=== PATIENT | male | born 1970 | race Caucasian/White ===

== ENCOUNTER 2021-03-05 22:51 | Inpatient (IN) ==
--- NOTE | 2021-03-05 22:57 | Emergency Department Note ---
HPI General Chief complaint: Shortness of Breath/Dyspnea Stated complaint: sob Time Seen by Provider: 03/05/21 22:57 Source: patient and family Mode of arrival: ambulatory Limitations: no limitations History of Present Illness HPI Narrative: Narrative: The patient is a 50-year-old male who has had Covid symptoms for about a week and he was diagnosed yesterday with Covid. He also states that he was treated with outpatient monoclonal antibodies. He presents to the emergency department with worsening shortness of breath and worsening cough. Related Data Home Medications Medication Instructions Recorded Confirmed thyroid (pork) 65 mg tablet PO 30 Days #30 10/10/16 03/05/21 metformin 500 mg tablet 1,000 mg PO BID 01/11/18 03/05/21 budesonide-formoterol HFA 160 2 puff INHALATION g 03/05/21 03/05/21 mcg-4.5 mcg/actuation aerosol inhaler lisinopril 03/06/21 Previous Rx's Medication Instructions Recorded albuterol sulfate 90 mcg/actuation 2 puff INHALATION .q4-6h PRN #8.5 g 10/30/18 aerosol inhaler benzonatate 100 mg capsule See Rx Instructions PO .q 8 hours 03/05/21 PRN #30 cap Allergies Allergy/AdvReac Type Severity Reaction Status Date / Time No Known Drug Allergies Allergy Verified 03/05/21 23:00 Review of Systems ROS ROS Narrative: Narrative: All systems ED: reviewed and negative except as stated. [facility] Narrative Patient History Narrative: Narrative: Medical/Surgical/Family History All Active Problems (Updated 03/06/21 @ 02:03 by Lawrence Dave DO) Pneumonia due to COVID-19 virus (Acute) ANYA (acute kidney injury) (Acute) COVID-19 (Acute) Sinusitis, acute (Acute) Cough (Acute) Chest pain (Acute) Dyspnea (Acute) Dysmetabolic syndrome (Chronic) Hypothyroid (Chronic) Dyslipidemia (Chronic) Medical History (Updated 03/06/21 @ 02:03 by Lawrence Dave DO) Clavicle fracture Dyslipidemia associated with weight gain Dysmetabolic syndrome Hypothyroid Influenza A Surgical History H/O knee surgery S/P surgical manipulation of ankle joint Status post wrist surgery Social History Smoking Status: Never smoker Alcohol Intake Frequency: holiday/special occasion only Substance Use: does not use Exam Narrative Narrative: Narrative: General Limitations: no limitations General appearance: Present alert Head Head: Present atraumatic and normocephalic Eye Eye: Present normal appearance, PERRL and EOMI ENT ENT: Present normal exam, normal oropharynx and mucous membranes moist Neck Neck: Present normal inspection, full ROM and trachea midline Chest Chest: Present normal inspection and symmetric chest wall rise Respiratory Respiratory: Present other (Diffuse adventitious lung sounds in bilateral lung scott. No use of accessory muscles. Mild tachypnea.); Absent respiratory distress and accessory muscle use Cardiovascular Cardiovascular: Present regular rate and normal rhythm Adbominal Abdominal: Present soft and normal bowel sounds; Absent tenderness, guarding, rebound and organomegaly Extremities Extremities: Present normal inspection and full ROM; Absent tenderness Back Back: Present normal inspection and full ROM; Absent tenderness Neurological Neurological: Present alert, oriented X3, CN II-XII intact, normal gait, motor sensory deficit and reflexes normal Psychiatric Psychiatric: Present normal affect Skin Skin: Present warm (WNL); Absent rash Course Course Course Narrative: Chest x-ray shows bilateral pulmonary patchy fluffy infiltrates consistent with Covid pneumonia. Patient was evaluated and admitted to the hospitalist Dr. Loving, who recommends to initiate treatment with remdesivir. Patient also provided a dose of Decadron and basic facilitated admission orders were placed. EKG shows a rate of 89, sinus rhythm, left axis deviation, no STEMI, nonspecific EKG. Vital Signs Vital signs: Vital Signs Temperature 101.2 F H 03/05/21 22:52 Pulse Rate 100 H 03/05/21 22:52 Respiratory Rate 24 H 03/05/21 22:52 Blood Pressure 129/79 03/05/21 22:52 Pulse Oximetry (%) 79 L 03/05/21 22:52 Temperature 101.2 F H 03/05/21 22:52 Pulse Rate 85 03/06/21 01:48 Respiratory Rate 20 03/06/21 01:46 Blood Pressure 129/80 03/06/21 01:47 Pulse Oximetry (%) 92 03/06/21 01:48 MDM MDM Narrative Medical decision making narrative: Narrative: Lab Data Result diagrams: 03/05/21 00:25 03/05/21 00:25 Labs: Lab Results 03/05/21 03/05/21 03/05/21 Range/Units 00:25 00:25 00:25 WBC 5.1 (4.5-11.0) K/mcL RBC 4.70 (4.63-6.08) M/mcL Hgb 13.9 (13.7-17.5) g/dL Hct 40.4 (40.1-51.0) % MCV 86.0 (80.0-100.0) fL MCH 29.6 (26.0-34.0) pg MCHC 34.4 (31.0-36.0) g/dL RDW 13.4 (11.5-14.5) % Plt Count 154 (140-440) K/mcL MPV 9.6 (7.4-10.4) fL Neut % (Auto) 81.4 H (38.0-78.0) % Lymph % (Auto) 16.2 (15.5-49.0) % [place] % (Auto) 2.2 (1.0-12.0) % Eos % (Auto) 0 (0.0-7.0) % Baso % (Auto) 0.2 (0.0-2.0) % Lymph # (Auto) 0.82 L (1.50-4.80) K/mcL [place] # (Auto) 0.11 (0.10-0.90) K/mcL Eos # (Auto) 0 (0.00-0.70) K/mcL Baso # (Auto) 0.01 (0.00-0.30) K/mcL Absolute Neutrophils 4.12 (1.80-8.00) K/mcL PT 13.1 (11.9-14.5) sec INR 0.9 (0.9-1.1) APTT 37.2 H (20.0-37.0) sec Sodium 134 (133-145) mmol/L Potassium 4.5 (3.3-5.1) mmol/L Chloride 100 (96-108) mmol/L Carbon Dioxide 19 L (22-30) mmol/L Anion Gap 15.0 (8.0-16.0) BUN 23 H (6-20) mg/dL Creatinine 1.4 H (0.7-1.2) mg/dL GFR Calculation 58 Glucose 152 H (70-105) mg/dL Calcium 8.2 L (8.6-10.4) mg/dL Magnesium 1.7 (1.6-2.5) mg/dL Total Bilirubin 0.3 (0.1-1.0) mg/dL AST 71 H (<40) U/L ALT 40 H (<40) U/L Alkaline Phosphatase 62 (39-117) U/L Troponin T (<0.03) ng/mL NT-Pro-B Natriuret Pep 65.6 (<125.0) pg/mL Total Protein 6.4 (5.9-8.4) gm/dL Albumin 3.4 (3.2-5.2) gm/dL Globulin 3.0 (2.2-3.7) gm/dL Albumin/Globulin Ratio 1.1 (1.0-2.3) Lipase 47 (7-60) U/L Procalcitonin (<0.10) ng/mL 03/05/21 03/05/21 Range/Units 00:25 00:25 WBC (4.5-11.0) K/mcL RBC (4.63-6.08) M/mcL Hgb (13.7-17.5) g/dL Hct (40.1-51.0) % MCV (80.0-100.0) fL MCH (26.0-34.0) pg MCHC (31.0-36.0) g/dL RDW (11.5-14.5) % Plt Count (140-440) K/mcL MPV (7.4-10.4) fL Neut % (Auto) (38.0-78.0) % Lymph % (Auto) (15.5-49.0) % [place] % (Auto) (1.0-12.0) % Eos % (Auto) (0.0-7.0) % Baso % (Auto) (0.0-2.0) % Lymph # (Auto) (1.50-4.80) K/mcL [place] # (Auto) (0.10-0.90) K/mcL Eos # (Auto) (0.00-0.70) K/mcL Baso # (Auto) (0.00-0.30) K/mcL Absolute Neutrophils (1.80-8.00) K/mcL PT (11.9-14.5) sec INR (0.9-1.1) APTT (20.0-37.0) sec Sodium (133-145) mmol/L Potassium (3.3-5.1) mmol/L Chloride (96-108) mmol/L Carbon Dioxide (22-30) mmol/L Anion Gap (8.0-16.0) BUN (6-20) mg/dL Creatinine (0.7-1.2) mg/dL GFR Calculation Glucose (70-105) mg/dL Calcium (8.6-10.4) mg/dL Magnesium (1.6-2.5) mg/dL Total Bilirubin (0.1-1.0) mg/dL AST (<40) U/L ALT (<40) U/L Alkaline Phosphatase (39-117) U/L Troponin T < 0.01 (<0.03) ng/mL NT-Pro-B Natriuret Pep (<125.0) pg/mL Total Protein (5.9-8.4) gm/dL Albumin (3.2-5.2) gm/dL Globulin (2.2-3.7) gm/dL Albumin/Globulin Ratio (1.0-2.3) Lipase (7-60) U/L Procalcitonin 2.86 H (<0.10) ng/mL Discharge Plan Patient/Caregiver Discharge Instructions 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: No Clinical Impression: COVID-19, Pneumonia due to COVID-19 virus, ANYA (acute kidney injury) Instructions: COVID-19 Patient Disposition: Xfer As Inpt ([facility]) Condition: Serious Follow up with: John Abernathy MD [Primary Care Provider] - Prescriptions: No Action thyroid (pork) 65 MG tablet 65 mg PO DAILY 30 Days Qty: 30 RF: 0 budesonide-formoterol 160-4.5 mcg/actuation HFA aerosol inhaler 2 puff inhalation PRN PRN (Reason: Shortness Of Breath Or Wheezing) RF: 0 benzonatate [Tessalon Perles] 100 mg capsule See Rx Instructions PO .q 8 hours PRN (Reason: cough) Qty: 30 RF: 0 metformin 500 mg tablet 1,000 mg PO BID RF: 0 albuterol sulfate [ProAir HFA] 90 mcg/actuation HFA aerosol inhaler 2 puff inhalation .q4-6h PRN (Reason: cough, shortness of breath, wheezing) Qty: 8.5 RF: 0 lisinopril RF: 0
[2021-03-05] MEDS ORDERED: DEXAMETHASONE 10 MG/ML VIAL IV ONE (22:59)
[2021-03-05] MEDS ORDERED: 0.9 % SODIUM CHLORIDE 1,000 ML IV ONE (23:56)
[2021-03-06 00:56] LABS: Basophils # (Auto) 0.01 K/mcL (0.00-0.30); Basophils % (Auto) 0.2 % (0.0-2.0); Eosinophils # (Auto) 0 K/mcL (0.00-0.70); Eosinophils % (Auto) 0 % (0.0-7.0); Hematocrit 40.4 % (40.1-51.0); Hemoglobin 13.9 g/dL (13.7-17.5); Lymphocytes # (Auto) 0.82 K/mcL (1.50-4.80); Lymphocytes % (Auto) 16.2 % (15.5-49.0); Mean Corpuscular HGB Conc 34.4 g/dL (31.0-36.0); Mean Platelet Volume 9.6 fL (7.4-10.4); Monocytes # (Auto) 0.11 K/mcL (0.10-0.90); Monocytes % (Auto) 2.2 % (1.0-12.0); Neutrophils % (Auto) 81.4 % (38.0-78.0); Platelet Count 154 K/mcL (140-440); Red Cell Distribution Width 13.4 % (11.5-14.5); WBC 5.1 K/mcL (4.5-11.0)
[2021-03-06 01:15] LABS: proBNP 65.6 pg/mL (<125.0)
[2021-03-06 01:19] LABS: ALT/SGPT 40 U/L (<40); AST/SGOT 71 U/L (<40); Albumin 3.4 gm/dL (3.2-5.2); Albumin/Globulin Ratio 1.1 (1.0-2.3); Alkaline Phosphatase 62 U/L (39-117); Bilirubin,Total 0.3 mg/dL (0.1-1.0); Blood Urea Nitrogen 23 mg/dL (6-20); Calcium 8.2 mg/dL (8.6-10.4); Carbon Dioxide 19 mmol/L (22-30); Chloride 100 mmol/L (96-108); Glomerular Filtration Rate 58; Glucose 152 mg/dL (70-105)
[2021-03-06 01:30] LABS: INR 0.9 (0.9-1.1); Partial Thromboplastin Time 37.2 sec (20.0-37.0); Prothrombin Time 13.1 sec (11.9-14.5)
[2021-03-06] MEDS ORDERED: IBUPROFEN 600 MG TABLET PO PRN ×2 (01:34→07:22)
[2021-03-06] MEDS ORDERED: ONDANSETRON 4 MG/2 ML VIAL IV PRN ×3 (01:34→07:22)
[2021-03-06] MEDS ORDERED: ACETAMINOPHEN 325 MG TABLET PO PRN ×2 (01:34→07:22)
[2021-03-06] MEDS ORDERED: REMDESIVIR 200 MG in 0.9 % SODIUM CHLORIDE 250 ML IV ONE (01:34)
[2021-03-06] MEDS ORDERED: 0.9 % SODIUM CHLORIDE 1,000 ML IV SCH ×2 (01:45→07:30)
[2021-03-06] MEDS ORDERED: 0.9 % SODIUM CHLORIDE 10 ML SYRINGE IV SCH ×2 (06:00→14:00)
--- NOTE | 2021-03-06 06:27 | XRay Report ---
INDICATION: SOB. Positive covid test TECHNIQUE: AP portable semiupright chest x-ray COMPARISON: Previous chest x-ray dated 05/25/2018 FINDINGS: Lungs:Bilateral diffuse pulmonary parenchymal infiltrates with peripheral predominance. Appearance is consistent with severe covid pneumonia. Heart, vascular:No significant cardiomegaly. Pulmonary vascularity is normal. No pulmonary edema or pulmonary congestion Mediastinum, rebeka:No mediastinal widening. No hilar mass Pleura:No pleural fluid. No pleural-based mass or calcification Skeletal:Negative. IMPRESSION: 1. Bilateral pulmonary parenchymal infiltrates 2. Appearance is consistent with severe covid pneumonia Interpreted and Authenticated by: Dereck Felipe 03/06/21
[2021-03-06] MEDS ORDERED: BENZONATATE 100 MG CAPSULE PO PRN (07:10)
[2021-03-06] MEDS ORDERED: MELATONIN 3 MG TABLET PO PRN ×2 (07:14→07:29)
--- NOTE | 2021-03-06 07:20 | Internal Med History&Physical ---
HPI History of Present Illness Patient information: Note initiated : 03/06/21 at 7:15 am Service Date, if different from initiated Date: [] Patient: Buck Zamora 50 y/o M admitted on 03/06/21 for sob. Chief Complaint: [CoVID pneumonia] History of present illness: Mr. Zamora is a 50 year old M history of type 2 diabetes mellitus, hypothyroidism, presenting with 6-day history of shortness of breath with nonproductive cough. There was no prior similar episode. Patient is not vaccinated against Covid pneumonia. Status post Tocilizumab on 03/05. Patient denies any sick contact. Patient was in his usual state of health until 6 days ago when he developed sudden onset shortness of breath with nonproductive cough. He is also complaining of chest pain whenever he coughs. He is also committing of respiratory wheezing. He denies any subjective fever or shaking chills or diaphoresis. He is complaining of general body weakness. He denies any muscle aches. Vital signs at ED presentation significant for tachypnea with rate of breathing in the mid 30s, and oxygen desaturation to the 70s on room air. Labs were significant for lack of leukocytosis with WBC 5.1. Serum creatinine elevated to 1.4 with baseline 1.0. Procalcitonin elevated at 2.86. Covid antigen test positive. Chest x-ray showing bilateral pulmonary infiltrates typical for Covid pneumonia. Constitutional Constitutional: Present weakness; Absent chills, excessive sweating, fatigue and fever(s) EENT Eyes: Absent blurry vision, change in vision, loss of vision and other visual disturbances Ears: Absent decreased hearing and tinnitus Nose, mouth and throat: Absent abnormal hearing, dry mouth, headache(s), nasal congestion and sore throat Cardiovascular Cardiovascular: Absent chest pain, chest pain at rest, edema, irregular heart rhythm and palpatations Respiratory Respiratory: Present cough, dyspnea and wheezing; Absent excessive phlegm production Gastrointestinal Gastrointestinal: Absent abdominal pain, constipation, diarrhea, nausea and vomiting Musculoskeletal Musculoskeletal: Absent back pain, deformity, limited range of motion, muscle cramps, muscle weakness and numbness Integumentary Integumentary: Absent lesions, rash and wounds Neurological Neurological: Absent focal weakness, headache(s) and numbness Psychiatric Psychiatric: Absent anxiety, depression and hallucinations PFSH PFSH All Active Problems (Updated 03/06/21 @ 07:19 by Inder Loving MD) T2DM (type 2 diabetes mellitus) (Acute) Stage 1 acute kidney injury (Acute) Pneumonia due to COVID-19 virus (Acute) ANYA (acute kidney injury) (Acute) COVID-19 (Acute) Sinusitis, acute (Acute) Cough (Acute) Chest pain (Acute) Dyspnea (Acute) Dysmetabolic syndrome (Chronic) Hypothyroid (Chronic) Dyslipidemia (Chronic) Medical History (Updated 03/06/21 @ 07:19 by Inder Loving MD) Clavicle fracture Dyslipidemia associated with weight gain Dysmetabolic syndrome Hypothyroid Influenza A Surgical History H/O knee surgery S/P surgical manipulation of ankle joint Status post wrist surgery Social History alcohol intake frequency: holiday/special occasion only substance use type: does not use MEDS/ALLERGIES Home Medications and Allergies Home Medications Medication Instructions Recorded Confirmed Type thyroid (pork) 65 mg tablet 65 mg PO DAILY 30 Days #30 10/10/16 03/06/21 History metformin 500 mg tablet 1,000 mg PO BID 01/11/18 03/06/21 History albuterol sulfate 90 mcg/actuation 2 puff INHALATION .q4-6h PRN #8.5 g 10/30/18 03/06/21 Rx aerosol inhaler benzonatate 100 mg capsule See Rx Instructions PO .q 8 hours 03/05/21 03/06/21 Rx PRN #30 cap budesonide-formoterol HFA 160 2 puff INHALATION PRN PRN g 03/05/21 03/06/21 History mcg-4.5 mcg/actuation aerosol inhaler lisinopril 10 mg PO DAILY 03/06/21 03/06/21 History melatonin 5 mg PO HS PRN 03/06/21 03/06/21 History Allergies Allergy/AdvReac Type Severity Reaction Status Date / Time No Known Drug Allergies Allergy Verified 03/06/21 06:30 EXAM Constitutional Vitals: Temp Pulse Resp BP Pulse Ox 36.0 C L 79 33 H 150/110 91 03/06/21 04:02 03/06/21 06:01 03/06/21 06:01 03/06/21 06:01 03/06/21 06:01 General appearance: cooperative, mild distress and morbidly obese Head Head exam: Present atraumatic and normocephalic Eye Eye exam: Present EOMI and PERRL ENT ENT exam: Present mucous membranes moist, normal exam and normal external ear exam Additional comments: high flow oxygen in place Neck Neck exam: Present normal inspection; Absent lymphadenopathy, tenderness and thyromegaly Respiratory Respiratory exam: Present decreased breath sounds and rhonchi; Absent accessory muscle use, CTAB and respiratory distress Cardiovascular Cardiovascular exam: Present normal rate and rhythm; Absent JVD GI/Abdominal GI/Abdominal exam: Present normal bowel sounds and soft; Absent organomegaly and tenderness Rectal Rectal exam: Present deferred Extremities Exam Extremities exam: Present full ROM, normal capillary refill and normal inspection; Absent tenderness Neurological Exam Neurological exam: Present alert, CN II-XII intact and oriented X3; Absent motor sensory deficit Psychiatric Psychiatric exam: Present normal affect and normal mood; Absent anxious and depressed Skin Skin exam: Present dry and intact DATA Data Completed and Pending Labs: Labs from last 24 hours 03/05/21 03/05/21 03/05/21 00:25 00:25 00:25 WBC RBC Hgb Hct MCV MCH MCHC RDW Plt Count MPV Neut % (Auto) Lymph % (Auto) [place] % (Auto) Eos % (Auto) Baso % (Auto) Lymph # (Auto) [place] # (Auto) Eos # (Auto) Baso # (Auto) Absolute Neutrophils PT INR APTT Sodium 134 Potassium 4.5 Chloride 100 Carbon Dioxide 19 L Anion Gap 15.0 BUN 23 H Creatinine 1.4 H GFR Calculation 58 Glucose 152 H Calcium 8.2 L Magnesium 1.7 Total Bilirubin 0.3 AST 71 H ALT 40 H Alkaline Phosphatase 62 Troponin T < 0.01 NT-Pro-B Natriuret Pep 65.6 Total Protein 6.4 Albumin 3.4 Globulin 3.0 Albumin/Globulin Ratio 1.1 Lipase 47 Procalcitonin 2.86 H 03/05/21 03/05/21 00:25 00:25 WBC 5.1 RBC 4.70 Hgb 13.9 Hct 40.4 MCV 86.0 MCH 29.6 MCHC 34.4 RDW 13.4 Plt Count 154 MPV 9.6 Neut % (Auto) 81.4 H Lymph % (Auto) 16.2 [place] % (Auto) 2.2 Eos % (Auto) 0 Baso % (Auto) 0.2 Lymph # (Auto) 0.82 L [place] # (Auto) 0.11 Eos # (Auto) 0 Baso # (Auto) 0.01 Absolute Neutrophils 4.12 PT 13.1 INR 0.9 APTT 37.2 H Sodium Potassium Chloride Carbon Dioxide Anion Gap BUN Creatinine GFR Calculation Glucose Calcium Magnesium Total Bilirubin AST ALT Alkaline Phosphatase Troponin T NT-Pro-B Natriuret Pep Total Protein Albumin Globulin Albumin/Globulin Ratio Lipase Procalcitonin Preliminary micro results at discharge 03/05/21 00:15 Blood Culture - Preliminary Blood 03/05/21 00:04 Blood Culture - Preliminary Blood A/P Assessment and plan (1) Pneumonia due to COVID-19 virus: Status: Acute (2) Stage 1 acute kidney injury: Status: Acute (3) Hypothyroid: Status: Chronic Qualifiers: Hypothyroidism type: acquired Qualified Code(s): E03.9 - Hypothyroidism, unspecified (4) T2DM (type 2 diabetes mellitus): Status: Acute Narrative A/P Narrative: Assessment and plan: 1. Covid pneumonia: Admit to inpatient PCU with cardiac monitoring Isolations: Airborne and contact Lactic acid Inflammatory markers Blood culture CBC with auto differential Supplemental oxygen therapy currently at high flow oxygen titrate to achieve SPO2 greater than or equal to 92% Status post Tocilizumab on 03/05. Remdesivir Dexamethasone Lovenox Tylenol as needed fever Tessalon Robitussin as needed cough DuoNeb nebulizer as needed wheezing 2. type 2 diabetes mellitus: Hemoglobin A1c Home Metformin Low-dose correctional scale insulin AC at bedtime Accu-Chek is suggested Hypoglycemia protocol Diabetic diet #3 stage I acute kidney injury: Avoid for toxic agents Normal saline at 125 cc/h BMP to trend kidney functions next 4. Hypothyroidism: Continue oral thyroid replacement therapy GI prophylaxis: Not currently indicated DVT prophylaxis: Lovenox CODE STATUS: Full code Prognosis: Guarded Disposition: Inpatient PCU Time Spent With Patient Time: Total time spent is greater than 50% in coordination of care (as documented) at patient's floor/unit and/or counseling patient: Total time spent with greater than 50% in coordination of care (as documented) at patient's floor/unit and/or counseling patient:: Greater than 35 minutes QUALITY VTE Deep Vein Thrombosis/Pulmonary Embolism Present on Admission: No
[2021-03-06] MEDS ORDERED: LACTULOSE 20 GM/30 ML ORAL.SOL PO PRN (07:22)
[2021-03-06] MEDS ORDERED: DEXTROSE 31 GM ORAL.SUSP PO PRN (07:22)
[2021-03-06] MEDS ORDERED: DEXTROSE 50% 50 ML VIAL IV PRN (07:22)
[2021-03-06] MEDS ORDERED: SENNOSIDES 1 TABLET PO PRN (07:22)
[2021-03-06] MEDS ORDERED: guaiFENesin/DEXTROMETHORPHAN ORAL SOL PO PRN (07:22)
[2021-03-06] MEDS: INSULIN LISPRO 1 UNIT/0.01 ML UNIT SQ SCH ×4 (07:56→20:40)
[2021-03-06] MEDS: ENOXAPARIN 40 MG/0.4 ML SYRINGE SQ SCH ×2 (07:56→20:32)
[2021-03-06] MEDS: DEXAMETHASONE 4 MG TABLET PO SCH (07:56)
[2021-03-06] MEDS: THYROID, PORK 60 MG TABLET PO SCH (08:02)
[2021-03-06 08:57] LABS: Basophils # (Auto) 0.01 K/mcL (0.00-0.30); Basophils % (Auto) 0.1 % (0.0-2.0); Eosinophils # (Auto) 0 K/mcL (0.00-0.70); Eosinophils % (Auto) 0 % (0.0-7.0); Hematocrit 40.3 % (40.1-51.0); Hemoglobin 13.5 g/dL (13.7-17.5); Lymphocytes # (Auto) 0.72 K/mcL (1.50-4.80); Lymphocytes % (Auto) 10.1 % (15.5-49.0); Mean Cell Volume 88.2 fL (80.0-100.0); Mean Corpuscular HGB Conc 33.5 g/dL (31.0-36.0); Mean Platelet Volume 9.6 fL (7.4-10.4); Monocytes # (Auto) 0.13 K/mcL (0.10-0.90); Monocytes % (Auto) 1.8 % (1.0-12.0); Platelet Count 169 K/mcL (140-440); RBC 4.57 M/mcL (4.63-6.08); Red Cell Distribution Width 13.7 % (11.5-14.5); WBC 7.1 K/mcL (4.5-11.0)
[2021-03-06] MEDS ORDERED: THYROID PO SCH (09:00)
[2021-03-06] MEDS ORDERED: [UNRECOGNIZED DRUG - OTHER] PO SCH (09:00)
[2021-03-06] MEDS ORDERED: DOCUSATE SODIUM 100 MG CAPSULE PO SCH ×2 (09:00)
[2021-03-06 09:08] LABS: ALT/SGPT 39 U/L (<40); AST/SGOT 69 U/L (<40); Albumin 3.4 gm/dL (3.2-5.2); Albumin/Globulin Ratio 1.2 (1.0-2.3); Alkaline Phosphatase 61 U/L (39-117); Bilirubin,Total 0.2 mg/dL (0.1-1.0); Blood Urea Nitrogen 25 mg/dL (6-20); Calcium 8.1 mg/dL (8.6-10.4); Carbon Dioxide 19 mmol/L (22-30); Chloride 103 mmol/L (96-108); Globulin 2.9 gm/dL (2.2-3.7); Glomerular Filtration Rate 70; Glucose 222 mg/dL (70-105)
[2021-03-06] MEDS: DOCUSATE SODIUM 100 MG CAPSULE PO SCH ×2 (09:21→20:32)
[2021-03-06 10:14] LABS: Hemoglobin A1C 6.6 % Hgb (4.0-6.0)
[2021-03-06] MEDS: 0.9 % SODIUM CHLORIDE 1,000 ML IV SCH ×2 (11:17→18:33)
[2021-03-06] MEDS: 0.9 % SODIUM CHLORIDE 10 ML SYRINGE IV SCH ×2 (12:19→20:32)
--- NOTE | 2021-03-06 12:46 | Internal Med Progress Note ---
SUBJECTIVE Subjective Patient information: Note initiated : 03/06/21 at 12:41 pm Service Date, if different from initiated Date: [] Patient: Buck Zamora 50 y/o M admitted on 03/06/21 for sob. Chief Complaint: [] Interval history: History of present illness: Mr. Zamora is a 50 year old M history of type 2 diabetes mellitus, hypothyroidism, presenting with 6-day history of shortness of breath with nonproductive cough. There was no prior similar episode. Patient is not vaccinated against Covid pneumonia. Status post Tocilizumab on 03/05. Patient denies any sick contact. Patient was in his usual state of health until 6 days ago when he developed sudden onset shortness of breath with nonproductive cough. He is also complaining of chest pain whenever he coughs. He is also committing of respiratory wheezing. He denies any subjective fever or shaking chills or diaphoresis. He is complaining of general body weakness. He denies any muscle aches. Vital signs at ED presentation significant for tachypnea with rate of breathing in the mid 30s, and oxygen desaturation to the 70s on room air. Labs were significant for lack of leukocytosis with WBC 5.1. Serum creatinine elevated to 1.4 with baseline 1.0. Procalcitonin elevated at 2.86. Covid antigen test positive. Chest x-ray showing bilateral pulmonary infiltrates typical for Covid pneumonia. 03/07 Constitutional Vitals: Vital Signs Temp Pulse Resp BP Pulse Ox 97.1 F 80 35 H 141/88 91 03/06/21 12:01 03/06/21 12:01 03/06/21 12:01 03/06/21 12:01 03/06/21 12:01 Period Temp Pulse Resp BP Sys/Joyner Pulse Ox Last 24 Hr 96.8 F-101.2 F 70-100 16-35 105-168/74-126 79-96 Intake and Output 03/05/21 03/06/21 03/06/21 21:59 05:59 13:59 Intake Total 1000 1610 Output Total 0 450 Balance 1000 1160 Weight 99.7 kg Intake & Output: Intake & Output 03/05/21 03/06/21 03/06/21 21:59 05:59 13:59 Intake Total 1000 1610 Output Total 0 450 Balance 1000 1160 Weight 99.7 kg Intake: IV 1000 1250 Sodium Chloride 0.9% 1,000 ml @ 1000 1000 125 mls/hr IV .Q8H [facility] Rx#: [id number] Veklury 200 mg In Sodium 250 Chloride 0.9% 250 ml @ 500 mls/ hr IV ONCE ONE Rx#:[id number] Oral 0 360 Output: Void Amount 0 450 Other: Meal Breakfast Percent of Meal Consumed 100% Exam: General: Alert, Awake, No acute Distress Eyes/N/T: EOMI, Head/Neck: neck supple, CV: RRR, No murmurs, Pulm: b/l, no wheezing/rhonchi/rales Abd: soft, nontender, +BS x4 Ext: no clubbing/cyanosis/edema Neuro: Alert, no focal deficits, moves all extremities, Skin: warm/dry OBJ DATA Labs CBC & Chem 7: 03/06/21 07:49 03/06/21 07:49 Labs: Abnormal Lab Results 03/06/21 03/06/21 03/06/21 07:49 07:49 07:49 RBC 4.57 L Hgb 13.5 L Neut % (Auto) 88.0 H Lymph % (Auto) 10.1 L Lymph # (Auto) 0.72 L APTT Carbon Dioxide 19 L BUN 25 H Creatinine Glucose 222 H Hemoglobin A1c 6.6 H Calcium 8.1 L AST 69 H ALT Procalcitonin 03/05/21 03/05/21 03/05/21 00:25 00:25 00:25 RBC Hgb Neut % (Auto) Lymph % (Auto) Lymph # (Auto) APTT 37.2 H Carbon Dioxide 19 L BUN 23 H Creatinine 1.4 H Glucose 152 H Hemoglobin A1c Calcium 8.2 L AST 71 H ALT 40 H Procalcitonin 2.86 H 03/05/21 00:25 RBC Hgb Neut % (Auto) 81.4 H Lymph % (Auto) Lymph # (Auto) 0.82 L APTT Carbon Dioxide BUN Creatinine Glucose Hemoglobin A1c Calcium AST ALT Procalcitonin Meds: Medications Acetaminophen (Acetaminophen 325 Mg Tablet) 650 mg PO Q6HP PRN; Protocol PRN Reason: Per Pain Protocol/Fever > 101 Acetaminophen (Acetaminophen 325 Mg Tablet) 650 mg PO Q6HP PRN; Protocol PRN Reason: Per Pain Protocol/Fever > 101 Albuterol/Ipratropium (Ipratropium/Albuterol 3 Ml Ampul.Neb) 3 ml NEB Q4HRT PRN PRN Reason: Wheezing Benzonatate (Benzonatate 100 Mg Capsule) 0 mg PO Q8HP PRN PRN Reason: cough Dexamethasone (Dexamethasone 4 Mg Tablet) 6 mg PO DAILY [facility] Last Admin: 03/06/21 07:56 Dose: 6 mg Documented by: Dextrose (Dextrose 50% 50 Ml Vial) 0 ml IV UD PRN PRN Reason: Hypoglycemia Diagnostic Test (Pha) (Accu-Chek 1 Each Strip) 1 each FS ACHS [facility] Last Admin: 03/06/21 11:16 Dose: 1 each Documented by: Docusate Sodium (Docusate Sodium 100 Mg Capsule) 100 mg PO BID [facility] Last Admin: 03/06/21 09:21 Dose: Not Given Documented by: Enoxaparin Sodium (Enoxaparin 40 Mg/0.4 Ml Syringe) 40 mg SQ BID [facility] Last Admin: 03/06/21 07:56 Dose: 40 mg Documented by: Glucose (Dextrose 31 Gm Oral.Susp) 15 gm PO PRN PRN PRN Reason: Hypoglycemia Guaifenesin (Guaifenesin/Dextromethorphan Oral Mague) 10 ml PO Q4HP PRN PRN Reason: Cough Sodium Chloride (Sodium Chloride 0.9%) 1,000 mls @ 125 mls/hr IV .Q8H [facility] Last Admin: 03/06/21 11:17 Dose: 125 mls/hr Documented by: REMDESIVIR 100 mg/ Sodium (Chloride) 250 mls @ 500 mls/hr IV Q24H [facility] Stop: 03/09/21 19:29 Ibuprofen (Ibuprofen 600 Mg Tablet) 600 mg PO QIDP PRN; Protocol PRN Reason: Per Pain Protocol/Fever > 101 Insulin Human Lispro (Insulin Lispro 1 Unit/0.01 Ml Unit) 0 unit SQ [facility]; Protocol Last Admin: 03/06/21 12:18 Dose: 3 units Documented by: Lactulose (Lactulose 20 Gm/30 Ml Oral.Mague) 10 gm PO DAILYP PRN PRN Reason: Constipation Melatonin (Melatonin 3 Mg Tablet) 6 mg PO HS PRN PRN Reason: Insomnia Ondansetron HCl (Ondansetron 4 Mg/2 Ml Vial) 4 mg IV Q6HP PRN PRN Reason: Nausea And Vomiting Ondansetron HCl (Ondansetron 4 Mg/2 Ml Vial) 4 mg IV Q4HP PRN; Protocol PRN Reason: Nausea And Vomiting Senna (Sennosides 1 Tablet) 2 tab PO HSP PRN PRN Reason: Constipation Sodium Chloride (0.9 % Sodium Chloride 10 Ml Syringe) 10 ml IV Q8 [facility] Last Admin: 03/06/21 12:19 Dose: Not Given Documented by: Thyroid (Thyroid, Pork 60 Mg Tablet) 60 mg PO ACB [facility] Last Admin: 03/06/21 08:02 Dose: 60 mg Documented by: A/P Narrative A/P Narrative: A: *Covid pneumonia w/ARDS *Acute hypoxic respiratory failure: -on 25lpm & 100% *ANYA: * type 2 diabetes mellitus: -A1c *Hypothyroidism: P: -Remdesivir/Dexamethasone, sp Tocilizumab on 03/05. -Inflammatory markers -O2 wean as able goal 92% or higher -NS IVF -SSI, metformin -ppx: Lovenox -Prognosis: Guarded Full code Time Spent With Patient Time: Total time spent is greater than 50% in coordination of care (as documented) at patient's floor/unit and/or counseling patient: QUALITY VTE Deep Vein Thrombosis/Pulmonary Embolism Present on Admission: No
[2021-03-06] MEDS: REMDESIVIR 100 MG in 0.9 % SODIUM CHLORIDE 250 ML IV SCH (18:33)
--- NOTE | 2021-03-06 19:52 | EKG ---
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
[2021-03-06] MEDS ORDERED: SENNOSIDES 1 TABLET PO SCH ×2 (21:00)
[2021-03-07] MEDS: 0.9 % SODIUM CHLORIDE 1,000 ML IV SCH ×2 (03:08→07:10)
[2021-03-07] MEDS: 0.9 % SODIUM CHLORIDE 10 ML SYRINGE IV SCH ×3 (06:07→22:00)
--- NOTE | 2021-03-07 07:49 | Internal Med Progress Note ---
SUBJECTIVE Subjective Patient information: Note initiated : 03/07/21 at 7:41 am Service Date, if different from initiated Date: [] Patient: Buck Zamora 50 y/o M admitted on 03/06/21 for sob. Chief Complaint: [] Interval history: History of present illness: Mr. Zamora is a 50 year old M history of type 2 diabetes mellitus, hypothyroidism, presenting with 6-day history of shortness of breath with nonproductive cough. There was no prior similar episode. Patient is not vaccinated against Covid pneumonia. Status post Tocilizumab on 03/05. Patient denies any sick contact. Patient was in his usual state of health until 6 days ago when he developed sudden onset shortness of breath with nonproductive cough. He is also complaining of chest pain whenever he coughs. He is also committing of respiratory wheezing. He denies any subjective fever or shaking chills or diaphoresis. He is complaining of general body weakness. He denies any muscle aches. Vital signs at ED presentation significant for tachypnea with rate of breathing in the mid 30s, and oxygen desaturation to the 70s on room air. Labs were significant for lack of leukocytosis with WBC 5.1. Serum creatinine elevated to 1.4 with baseline 1.0. Procalcitonin elevated at 2.86. Covid antigen test positive. Chest x-ray showing bilateral pulmonary infiltrates typical for Covid pneumonia. 03/07 Patient is on 35 L/min of 60%. Patient feels comfortable sitting up in chair. Does feel like he is breathing a little better. Does have productive cough. Review of Systems: denies headache/fever/chills/nausea/vomiting/chest or abdominal pain/diarrhea. Otherwise see above. Constitutional Vitals: Vital Signs Temp Pulse Resp BP Pulse Ox 96.8 F L 63 33 H 133/93 88 L 03/07/21 02:01 03/07/21 06:00 03/07/21 06:00 03/07/21 06:00 03/07/21 06:00 Period Temp Pulse Resp BP Sys/Joyner Pulse Ox Last 24 Hr 96.8 F-98.5 F 52-86 20-35 111-168/72-126 88-96 Intake and Output 03/06/21 03/07/21 03/07/21 21:59 05:59 13:59 Intake Total 1158 1450 Output Total 0 725 Balance 1158 725 Weight 101.877 kg Intake & Output: Intake & Output 03/06/21 03/07/21 03/07/21 21:59 05:59 13:59 Intake Total 1158 1450 Output Total 0 725 Balance 1158 725 Weight 101.877 kg Intake: IV 1158 1000 Sodium Chloride 0.9% 1,000 ml @ 908 1000 125 mls/hr IV .Q8H [facility] Rx#: [id number] Veklury 100 mg In Sodium 250 Chloride 0.9% 250 ml @ 500 mls/ hr IV Q24H [facility] Rx#:[id number] Oral 0 450 Output: Void Amount 0 725 Other: Urine Appearance Clear Urine Color Dark Yellow Urine Odor Normal Exam: General: Alert, Awake, No acute Distress Eyes/N/T: EOMI, Head/Neck: neck supple, CV: RRR, No murmurs, Pulm: Diminished b/l and mild rhonchi/rales, no wheezing Abd: soft, nontender, +BS x4 Ext: no clubbing/cyanosis/edema Neuro: Alert, no focal deficits, moves all extremities, Skin: warm/dry OBJ DATA Labs CBC & Chem 7: 03/06/21 07:49 03/06/21 07:49 Labs: Abnormal Lab Results 03/06/21 03/06/21 03/06/21 07:49 07:49 07:49 RBC 4.57 L Hgb 13.5 L Neut % (Auto) 88.0 H Lymph % (Auto) 10.1 L Lymph # (Auto) 0.72 L APTT Carbon Dioxide 19 L BUN 25 H Creatinine Glucose 222 H Hemoglobin A1c 6.6 H Calcium 8.1 L AST 69 H ALT Procalcitonin 03/05/21 03/05/21 03/05/21 00:25 00:25 00:25 RBC Hgb Neut % (Auto) Lymph % (Auto) Lymph # (Auto) APTT 37.2 H Carbon Dioxide 19 L BUN 23 H Creatinine 1.4 H Glucose 152 H Hemoglobin A1c Calcium 8.2 L AST 71 H ALT 40 H Procalcitonin 2.86 H 03/05/21 00:25 RBC Hgb Neut % (Auto) 81.4 H Lymph % (Auto) Lymph # (Auto) 0.82 L APTT Carbon Dioxide BUN Creatinine Glucose Hemoglobin A1c Calcium AST ALT Procalcitonin Meds: Medications Acetaminophen (Acetaminophen 325 Mg Tablet) 650 mg PO Q6HP PRN; Protocol PRN Reason: Per Pain Protocol/Fever > 101 Acetaminophen (Acetaminophen 325 Mg Tablet) 650 mg PO Q6HP PRN; Protocol PRN Reason: Per Pain Protocol/Fever > 101 Albuterol/Ipratropium (Ipratropium/Albuterol 3 Ml Ampul.Neb) 3 ml NEB Q4HRT PRN PRN Reason: Wheezing Benzonatate (Benzonatate 100 Mg Capsule) 0 mg PO Q8HP PRN PRN Reason: cough Dexamethasone (Dexamethasone 4 Mg Tablet) 6 mg PO DAILY [facility] Last Admin: 03/06/21 07:56 Dose: 6 mg Documented by: Dextrose (Dextrose 50% 50 Ml Vial) 0 ml IV UD PRN PRN Reason: Hypoglycemia Diagnostic Test (Pha) (Accu-Chek 1 Each Strip) 1 each FS ACHS [facility] Last Admin: 03/07/21 07:11 Dose: 1 each Documented by: Docusate Sodium (Docusate Sodium 100 Mg Capsule) 100 mg PO BID [facility] Last Admin: 03/06/21 20:32 Dose: 100 mg Documented by: Enoxaparin Sodium (Enoxaparin 40 Mg/0.4 Ml Syringe) 40 mg SQ BID [facility] Last Admin: 03/06/21 20:32 Dose: 40 mg Documented by: Glucose (Dextrose 31 Gm Oral.Susp) 15 gm PO PRN PRN PRN Reason: Hypoglycemia Guaifenesin (Guaifenesin/Dextromethorphan Oral Mague) 10 ml PO Q4HP PRN PRN Reason: Cough Last Admin: 03/06/21 18:33 Dose: 10 ml Documented by: Sodium Chloride (Sodium Chloride 0.9%) 1,000 mls @ 125 mls/hr IV .Q8H [facility] Last Admin: 03/07/21 07:10 Dose: Not Given Documented by: REMDESIVIR 100 mg/ Sodium (Chloride) 250 mls @ 500 mls/hr IV Q24H [facility] Stop: 03/09/21 19:29 Last Infusion: 03/06/21 19:04 Dose: Infused Documented by: Ibuprofen (Ibuprofen 600 Mg Tablet) 600 mg PO QIDP PRN; Protocol PRN Reason: Per Pain Protocol/Fever > 101 Last Admin: 03/06/21 18:48 Dose: 600 mg Documented by: Insulin Human Lispro (Insulin Lispro 1 Unit/0.01 Ml Unit) 0 unit SQ ACHS [facility]; Protocol Last Admin: 03/06/21 20:40 Dose: 2 units Documented by: Lactulose (Lactulose 20 Gm/30 Ml Oral.Mague) 10 gm PO DAILYP PRN PRN Reason: Constipation Melatonin (Melatonin 3 Mg Tablet) 6 mg PO HS PRN PRN Reason: Insomnia Ondansetron HCl (Ondansetron 4 Mg/2 Ml Vial) 4 mg IV Q4HP PRN; Protocol PRN Reason: Nausea And Vomiting Senna (Sennosides 1 Tablet) 2 tab PO HSP PRN PRN Reason: Constipation Sodium Chloride (0.9 % Sodium Chloride 10 Ml Syringe) 10 ml IV Q8 [facility] Last Admin: 03/07/21 06:07 Dose: Not Given Documented by: Thyroid (Thyroid, Pork 60 Mg Tablet) 60 mg PO ACB [facility] Last Admin: 03/06/21 08:02 Dose: 60 mg Documented by: A/P Narrative A/P Narrative: A: *Covid pneumonia w/ARDS & concern for bacterial coinfection: -did receive monoclonal ab's prior to admit *Acute hypoxic respiratory failure: -on 35lpm & 70% *ANYA: improved *Type 2 diabetes mellitus: -A1c 6.6 *Hypothyroidism: *Obese: P: -Remdesivir/Dexamethasone, s/p monoclonal Ab's (03/05). actemra -proning/mobilization -Inflammatory markers -O2 wean as able goal 92% or higher -SSI, metformin -ppx: Lovenox Prognosis: Guarded Full code Time Spent With Patient Time: Total time spent is greater than 50% in coordination of care (as documented) at patient's floor/unit and/or counseling patient: QUALITY VTE Deep Vein Thrombosis/Pulmonary Embolism Present on Admission: No
[2021-03-07] MEDS: ENOXAPARIN 40 MG/0.4 ML SYRINGE SQ SCH ×2 (08:28→20:20)
[2021-03-07] MEDS: DEXAMETHASONE 4 MG TABLET PO SCH (08:28)
[2021-03-07] MEDS: INSULIN LISPRO 1 UNIT/0.01 ML UNIT SQ SCH ×4 (08:28→20:19)
[2021-03-07] MEDS: DOCUSATE SODIUM 100 MG CAPSULE PO SCH ×2 (08:28→20:19)
[2021-03-07] MEDS: THYROID, PORK 60 MG TABLET PO SCH (08:37)
[2021-03-07] MEDS: cefTRIAXone 2 GM in DEXTROSE 5% IN WATER 50 ML IV SCH (09:32)
[2021-03-07 09:53] LABS: Uric Acid 5.9 mg/dL (2.5-8.0)
[2021-03-07] MEDS: AZITHROMYCIN 500 MG in DEXTROSE 5% IN WATER 250 ML IV SCH (10:10)
[2021-03-07] MEDS ORDERED: TOCILIZUMAB 600 MG in 0.9 % SODIUM CHLORIDE 70 ML IV ONE (11:00)
[2021-03-07] MEDS: REMDESIVIR 100 MG in 0.9 % SODIUM CHLORIDE 250 ML IV SCH (12:34)
[2021-03-07] MEDS ORDERED: FUROSEMIDE 40 MG/4 ML VIAL IV ONE (13:17)
[2021-03-07] MEDS: IPRATROPIUM/ALBUTEROL 3 ML AMPUL.NEB NEB PRN (14:07)
[2021-03-07] MEDS ORDERED: POTASSIUM CHLORIDE 20 MEQ TABLET PO PRN ×2 (17:37→17:41)
[2021-03-07] MEDS ORDERED: POTASSIUM CHLORIDE 40 MEQ in DEXTROSE 5% IN WATER 500 ML IV PRN (17:43)
[2021-03-07] MEDS ORDERED: MAGNESIUM SULFATE 2 GM/50 ML BAG IV PRN (17:45)
[2021-03-07] MEDS: MELATONIN 3 MG TABLET PO PRN (21:27)
[2021-03-08] MEDS: 0.9 % SODIUM CHLORIDE 10 ML SYRINGE IV SCH ×3 (05:48→20:53)
[2021-03-08] MEDS: THYROID, PORK 60 MG TABLET PO SCH (07:19)
[2021-03-08] MEDS: INSULIN LISPRO 1 UNIT/0.01 ML UNIT SQ SCH ×4 (07:26→20:58)
[2021-03-08 07:39] LABS: ALT/SGPT 44 U/L (<40); AST/SGOT 54 U/L (<40); Albumin/Globulin Ratio 1.2 (1.0-2.3); Alkaline Phosphatase 63 U/L (39-117); Bilirubin,Direct < 0.2 mg/dL (0-0.3); Bilirubin,Total 0.3 mg/dL (0.1-1.0); Blood Urea Nitrogen 37 mg/dL (6-20); Calcium 8.7 mg/dL (8.6-10.4); Carbon Dioxide 22 mmol/L (22-30); Chloride 105 mmol/L (96-108); Globulin 2.6 gm/dL (2.2-3.7); Glomerular Filtration Rate 87; Glucose 159 mg/dL (70-105); Lactate Dehydrogenase 742 U/L (135-225); Phosphorous 3.5 mg/dL (2.5-4.5); Triglycerides 145 mg/dL (<150); Uric Acid 6.9 mg/dL (2.5-8.0)
--- NOTE | 2021-03-08 07:54 | Internal Med Progress Note ---
SUBJECTIVE Subjective Patient information: Note initiated : 03/08/21 at 7:52 am Service Date, if different from initiated Date: [] Patient: Buck Zamora 50 y/o M admitted on 03/06/21 for sob. Chief Complaint: [] Interval history: History of present illness: Mr. Zamora is a 50 year old M history of type 2 diabetes mellitus, hypothyroidism, presenting with 6-day history of shortness of breath with nonproductive cough. There was no prior similar episode. Patient is not vaccinated against Covid pneumonia. Status post Tocilizumab on 03/05. Patient denies any sick contact. Patient was in his usual state of health until 6 days ago when he developed sudden onset shortness of breath with nonproductive cough. He is also complaining of chest pain whenever he coughs. He is also committing of respiratory wheezing. He denies any subjective fever or shaking chills or diaphoresis. He is complaining of general body weakness. He denies any muscle aches. Vital signs at ED presentation significant for tachypnea with rate of breathing in the mid 30s, and oxygen desaturation to the 70s on room air. Labs were significant for lack of leukocytosis with WBC 5.1. Serum creatinine elevated to 1.4 with baseline 1.0. Procalcitonin elevated at 2.86. Covid antigen test positive. Chest x-ray showing bilateral pulmonary infiltrates typical for Covid pneumonia. 03/07 Patient is on 35 L/min of 60%. Patient feels comfortable sitting up in chair. Does feel like he is breathing a little better. Does have productive cough. 03/08 Patient little frustrated with the slow progress. Had increased need last night but titrated down to 45 L/min and 55 FiO2 currently. Patient sitting up in chair. Review of Systems: denies headache/fever/chills/nausea/vomiting/chest or abdominal pain/diarrhea. Otherwise see above. Constitutional Vitals: Vital Signs Temp Pulse Resp BP Pulse Ox 98.4 F 56 L 27 H 128/82 95 03/08/21 04:01 03/08/21 06:34 03/08/21 06:34 03/08/21 06:01 03/08/21 06:34 Period Temp Pulse Resp BP Sys/Joyner Pulse Ox Last 24 Hr 97.5 F-98.8 F 55-89 18-33 118-149/66-102 77-97 Intake and Output 03/07/21 03/08/21 03/08/21 21:59 05:59 13:59 Intake Total 120 900 Output Total 2950 875 Balance -2830 25 Weight 100.879 kg Intake & Output: Intake & Output 03/07/21 03/08/21 03/08/21 21:59 05:59 13:59 Intake Total 120 900 Output Total 2950 875 Balance -2830 25 Weight 100.879 kg Intake: Oral 120 900 Output: Void Amount 2950 875 Other: Meal Dinner Percent of Meal Consumed 100% Nourishment/Supplement name grape juice Urine Appearance Clear Clear Urine Color Straw Dark Yellow Stool Size Moderate Stool Color Brown Stool Consistency Soft # Bowel Movements 1 Exam: General: Alert, Awake, No acute Distress Eyes/N/T: EOMI, Head/Neck: neck supple, CV: RRR, No murmurs, Pulm: Diminished b/l and mild rhonchi/rales, no wheezing Abd: soft, nontender, +BS x4 Ext: no clubbing/cyanosis, mild b/l LE edema Neuro: Alert, no focal deficits, moves all extremities, Skin: warm/dry OBJ DATA Labs CBC & Chem 7: 03/06/21 07:49 03/08/21 05:10 Labs: Abnormal Lab Results 03/08/21 03/07/21 03/06/21 05:10 08:32 07:49 RBC Hgb Neut % (Auto) Lymph % (Auto) Lymph # (Auto) APTT Carbon Dioxide 19 L BUN 37 H 25 H Creatinine Glucose 159 H 222 H Hemoglobin A1c Calcium 8.1 L AST 54 H 69 H ALT 44 H Lactate Dehydrogenase 742 H C-Reactive Protein 4.30 H 9.40 H Total Protein 5.6 L Albumin 3.0 L Procalcitonin 03/06/21 03/06/21 03/05/21 07:49 07:49 00:25 RBC 4.57 L Hgb 13.5 L Neut % (Auto) 88.0 H Lymph % (Auto) 10.1 L Lymph # (Auto) 0.72 L APTT Carbon Dioxide BUN Creatinine Glucose Hemoglobin A1c 6.6 H Calcium AST ALT Lactate Dehydrogenase C-Reactive Protein Total Protein Albumin Procalcitonin 2.86 H 03/05/21 03/05/21 03/05/21 00:25 00:25 00:25 RBC Hgb Neut % (Auto) 81.4 H Lymph % (Auto) Lymph # (Auto) 0.82 L APTT 37.2 H Carbon Dioxide 19 L BUN 23 H Creatinine 1.4 H Glucose 152 H Hemoglobin A1c Calcium 8.2 L AST 71 H ALT 40 H Lactate Dehydrogenase C-Reactive Protein Total Protein Albumin Procalcitonin Meds: Medications Acetaminophen (Acetaminophen 325 Mg Tablet) 650 mg PO Q6HP PRN; Protocol PRN Reason: Per Pain Protocol/Fever > 101 Acetaminophen (Acetaminophen 325 Mg Tablet) 650 mg PO Q6HP PRN; Protocol PRN Reason: Per Pain Protocol/Fever > 101 Albuterol/Ipratropium (Ipratropium/Albuterol 3 Ml Ampul.Neb) 3 ml NEB Q4HRT PRN PRN Reason: Wheezing Last Admin: 03/07/21 14:07 Dose: 3 ml Documented by: Benzonatate (Benzonatate 100 Mg Capsule) 0 mg PO Q8HP PRN PRN Reason: cough Dexamethasone (Dexamethasone 4 Mg Tablet) 6 mg PO DAILY [facility] Last Admin: 03/07/21 08:28 Dose: 6 mg Documented by: Dextrose (Dextrose 50% 50 Ml Vial) 0 ml IV UD PRN PRN Reason: Hypoglycemia Diagnostic Test (Pha) (Accu-Chek 1 Each Strip) 1 each FS ACHS [facility] Last Admin: 03/08/21 07:25 Dose: 1 each Documented by: Docusate Sodium (Docusate Sodium 100 Mg Capsule) 100 mg PO BID [facility] Last Admin: 03/07/21 20:19 Dose: 100 mg Documented by: Enoxaparin Sodium (Enoxaparin 40 Mg/0.4 Ml Syringe) 40 mg SQ BID [facility] Last Admin: 03/07/21 20:20 Dose: 40 mg Documented by: Glucose (Dextrose 31 Gm Oral.Susp) 15 gm PO PRN PRN PRN Reason: Hypoglycemia Guaifenesin (Guaifenesin/Dextromethorphan Oral Mague) 10 ml PO Q4HP PRN PRN Reason: Cough Last Admin: 03/06/21 18:33 Dose: 10 ml Documented by: REMDESIVIR 100 mg/ Sodium (Chloride) 250 mls @ 500 mls/hr IV Q24H [facility] Stop: 03/09/21 19:29 Last Infusion: 03/07/21 13:19 Dose: Infused Documented by: Ceftriaxone Sodium 2 gm/ (Dextrose) 50 mls @ 100 mls/hr IV Q24H [facility]; Protocol Last Infusion: 03/07/21 10:23 Dose: Infused Documented by: Azithromycin 500 mg/ Dextrose 250 mls @ 250 mls/hr IV Q24H [facility]; Protocol Stop: 03/09/21 10:59 Last Infusion: 03/07/21 11:37 Dose: Infused Documented by: Potassium Chloride 40 meq/ (Dextrose) 520 mls @ 130 mls/hr IV PRN PRN PRN Reason: Potassium < 3 Magnesium Sulfate (Magnesium Sulfate) 2 gm in 50 mls @ 25 mls/hr IV DAILYP PRN PRN Reason: Magnesium </= 1.6 Ibuprofen (Ibuprofen 600 Mg Tablet) 600 mg PO QIDP PRN; Protocol PRN Reason: Per Pain Protocol/Fever > 101 Last Admin: 03/06/21 18:48 Dose: 600 mg Documented by: Insulin Human Lispro (Insulin Lispro 1 Unit/0.01 Ml Unit) 0 unit SQ [facility]; Protocol Last Admin: 03/08/21 07:26 Dose: 1 units Documented by: Lactulose (Lactulose 20 Gm/30 Ml Oral.Mague) 10 gm PO DAILYP PRN PRN Reason: Constipation Melatonin (Melatonin 3 Mg Tablet) 6 mg PO HS PRN PRN Reason: Insomnia Last Admin: 03/07/21 21:27 Dose: 6 mg Documented by: Ondansetron HCl (Ondansetron 4 Mg/2 Ml Vial) 4 mg IV Q4HP PRN; Protocol PRN Reason: Nausea And Vomiting Potassium Chloride (Potassium Chloride 20 Meq Tablet) 40 meq PO DAILYP PRN PRN Reason: Potassium is 3-3.5 Potassium Chloride (Potassium Chloride 20 Meq Tablet) 40 meq PO PRN PRN PRN Reason: Potassium < 3 Senna (Sennosides 1 Tablet) 2 tab PO HSP PRN PRN Reason: Constipation Sodium Chloride (0.9 % Sodium Chloride 10 Ml Syringe) 10 ml IV Q8 [facility] Last Admin: 03/08/21 05:48 Dose: 10 ml Documented by: Thyroid (Thyroid, Pork 60 Mg Tablet) 60 mg PO ACB [facility] Last Admin: 03/08/21 07:19 Dose: 60 mg Documented by: A/P Narrative A/P Narrative: A: *Covid pneumonia w/ARDS & concern for bacterial coinfection: -did receive monoclonal ab's prior to admit -CRP/PCT improving *Acute hypoxic respiratory failure: -on 45lpm & 55% *ANYA: improved *Type 2 diabetes mellitus: -A1c 6.6 *Hypothyroidism: *Obese: *Transaminitis: 2/2 viral illness, stable P: -Remdesivir/Dexamethasone, s/p monoclonal Ab's (03/05). s/p actemra (03/07) -Empiric Abx, -proning/mobilization -O2 supp, wean as able -SSI, metformin -ppx: Lovenox Full code Time Spent With Patient Time: Total time spent is greater than 50% in coordination of care (as documented) at patient's floor/unit and/or counseling patient: QUALITY VTE Deep Vein Thrombosis/Pulmonary Embolism Present on Admission: No
[2021-03-08] MEDS: IPRATROPIUM/ALBUTEROL 3 ML AMPUL.NEB NEB PRN (08:00)
[2021-03-08] MEDS: DOCUSATE SODIUM 100 MG CAPSULE PO SCH ×2 (08:05→20:53)
[2021-03-08] MEDS: BENZONATATE 100 MG CAPSULE PO PRN ×2 (08:14→20:52)
[2021-03-08] MEDS: DEXAMETHASONE 4 MG TABLET PO SCH (08:14)
[2021-03-08] MEDS: ENOXAPARIN 40 MG/0.4 ML SYRINGE SQ SCH ×2 (08:14→20:52)
[2021-03-08] MEDS: cefTRIAXone 2 GM in DEXTROSE 5% IN WATER 50 ML IV SCH (08:15)
[2021-03-08] MEDS: AZITHROMYCIN 500 MG in DEXTROSE 5% IN WATER 250 ML IV SCH (08:54)
[2021-03-08] MEDS ORDERED: ALBUMIN HUMAN 12.5 GM/50 ML BAG IV ONE (11:17)
[2021-03-08] MEDS ORDERED: FUROSEMIDE 20 MG/2 ML VIAL IV ONE (11:17)
[2021-03-08] MEDS: REMDESIVIR 100 MG in 0.9 % SODIUM CHLORIDE 250 ML IV SCH (11:25)
[2021-03-08] MEDS: MELATONIN 3 MG TABLET PO PRN (21:59)
[2021-03-09] MEDS: 0.9 % SODIUM CHLORIDE 10 ML SYRINGE IV SCH ×3 (06:34→21:13)
[2021-03-09 06:55] LABS: ALT/SGPT 48 U/L (<40); AST/SGOT 45 U/L (<40); Albumin 3.3 gm/dL (3.2-5.2); Albumin/Globulin Ratio 1.2 (1.0-2.3); Alkaline Phosphatase 66 U/L (39-117); Bilirubin,Direct < 0.2 mg/dL (0-0.3); Bilirubin,Total 0.5 mg/dL (0.1-1.0); Blood Urea Nitrogen 33 mg/dL (6-20); Calcium 9.2 mg/dL (8.6-10.4); Carbon Dioxide 24 mmol/L (22-30); Chloride 101 mmol/L (96-108); Globulin 2.8 gm/dL (2.2-3.7); Glomerular Filtration Rate 87; Glucose 145 mg/dL (70-105); Lactate Dehydrogenase 672 U/L (135-225); Phosphorous 3.6 mg/dL (2.5-4.5); Triglycerides 198 mg/dL (<150); Uric Acid 7.3 mg/dL (2.5-8.0)
[2021-03-09] MEDS ORDERED: LORazepam 2 MG/ML VIAL IV PRN (07:45)
--- NOTE | 2021-03-09 07:48 | Internal Med Progress Note ---
SUBJECTIVE Subjective Patient information: Note initiated : 03/09/21 at 7:44 am Service Date, if different from initiated Date: [] Patient: Buck Zamora 50 y/o M admitted on 03/06/21 for sob. Chief Complaint: [] Interval history: History of present illness: Mr. Zamora is a 50 year old M history of type 2 diabetes mellitus, hypothyroidism, presenting with 6-day history of shortness of breath with nonproductive cough. There was no prior similar episode. Patient is not vaccinated against Covid pneumonia. Status post Tocilizumab on 03/05. Patient denies any sick contact. Patient was in his usual state of health until 6 days ago when he developed sudden onset shortness of breath with nonproductive cough. He is also complaining of chest pain whenever he coughs. He is also committing of respiratory wheezing. He denies any subjective fever or shaking chills or diaphoresis. He is complaining of general body weakness. He denies any muscle aches. Vital signs at ED presentation significant for tachypnea with rate of breathing in the mid 30s, and oxygen desaturation to the 70s on room air. Labs were significant for lack of leukocytosis with WBC 5.1. Serum creatinine elevated to 1.4 with baseline 1.0. Procalcitonin elevated at 2.86. Covid antigen test positive. Chest x-ray showing bilateral pulmonary infiltrates typical for Covid pneumonia. 03/07 Patient is on 35 L/min of 60%. Patient feels comfortable sitting up in chair. Does feel like he is breathing a little better. Does have productive cough. 03/08 Patient little frustrated with the slow progress. Had increased need last night but titrated down to 45 L/min and 55 FiO2 currently. Patient sitting up in chair. 03/09 Patient down to 45% FiO2, was up to 65% yesterday. Feels like his breathing a little bit better and easier. Occasional cough nonproductive. Review of Systems: denies headache/fever/chills/nausea/vomiting/chest or abdominal pain/diarrhea. Otherwise see above. Constitutional Vitals: Vital Signs Temp Pulse Resp BP Pulse Ox 97.9 F 75 25 H 140/81 95 03/09/21 03:32 03/09/21 07:03 03/09/21 07:03 03/09/21 06:00 03/09/21 07:03 Period Temp Pulse Resp BP Sys/Joyner Pulse Ox Last 24 Hr 97.0 F-98.3 F 28-77 17-42 115-142/73-97 84-99 Intake and Output 03/08/21 03/09/21 03/09/21 21:59 05:59 13:59 Intake Total 120 800 Output Total 1350 725 Balance -1230 75 Weight 98.52 kg Intake & Output: Intake & Output 03/08/21 03/09/21 03/09/21 21:59 05:59 13:59 Intake Total 120 800 Output Total 1350 725 Balance -1230 75 Weight 98.52 kg Intake: Oral 120 800 Output: Void Amount 1350 725 Other: Meal Dinner Percent of Meal Consumed 100% Urine Appearance Clear Clear Urine Color Dark Yellow Dark Yellow Stool Size Moderate Stool Color Brown Stool Consistency Soft Formed # Bowel Movements 1 Exam: General: Alert, Awake, No acute Distress Eyes/N/T: EOMI, Head/Neck: neck supple, CV: RRR, No murmurs, Pulm: Diminished b/l and mild rhonchi/rales clearing, no wheezing Abd: soft, nontender, +BS x4 Ext: no clubbing/cyanosis, trace b/l LE edema Neuro: Alert, no focal deficits, moves all extremities, Skin: warm/dry OBJ DATA Labs CBC & Chem 7: 03/06/21 07:49 03/09/21 05:11 Labs: Abnormal Lab Results 03/09/21 03/08/21 03/08/21 05:11 05:10 05:10 RBC Hgb Neut % (Auto) Lymph % (Auto) Lymph # (Auto) Carbon Dioxide BUN 33 H 37 H Glucose 145 H 159 H Hemoglobin A1c Calcium AST 45 H 54 H ALT 48 H 44 H Lactate Dehydrogenase 672 H 742 H C-Reactive Protein 2.10 H 4.30 H Total Protein 5.6 L Albumin 3.0 L Triglycerides 198 H Procalcitonin 0.85 H 03/07/21 03/06/21 03/06/21 08:32 07:49 07:49 RBC 4.57 L Hgb 13.5 L Neut % (Auto) 88.0 H Lymph % (Auto) 10.1 L Lymph # (Auto) 0.72 L Carbon Dioxide 19 L BUN 25 H Glucose 222 H Hemoglobin A1c Calcium 8.1 L AST 69 H ALT Lactate Dehydrogenase C-Reactive Protein 9.40 H Total Protein Albumin Triglycerides Procalcitonin 03/06/21 07:49 RBC Hgb Neut % (Auto) Lymph % (Auto) Lymph # (Auto) Carbon Dioxide BUN Glucose Hemoglobin A1c 6.6 H Calcium AST ALT Lactate Dehydrogenase C-Reactive Protein Total Protein Albumin Triglycerides Procalcitonin Meds: Medications Acetaminophen (Acetaminophen 325 Mg Tablet) 650 mg PO Q6HP PRN; Protocol PRN Reason: Per Pain Protocol/Fever > 101 Albuterol/Ipratropium (Ipratropium/Albuterol 3 Ml Ampul.Neb) 3 ml NEB Q4HRT PRN PRN Reason: Wheezing Last Admin: 03/08/21 08:00 Dose: 3 ml Documented by: Benzonatate (Benzonatate 100 Mg Capsule) 0 mg PO Q8HP PRN PRN Reason: cough Last Admin: 03/08/21 20:52 Dose: 200 mg Documented by: Dexamethasone (Dexamethasone 4 Mg Tablet) 6 mg PO DAILY [facility] Last Admin: 03/08/21 08:14 Dose: 6 mg Documented by: Dextrose (Dextrose 50% 50 Ml Vial) 0 ml IV UD PRN PRN Reason: Hypoglycemia Diagnostic Test (Pha) (Accu-Chek 1 Each Strip) 1 each FS ACHS [facility] Last Admin: 03/08/21 20:57 Dose: 1 each Documented by: Docusate Sodium (Docusate Sodium 100 Mg Capsule) 100 mg PO BID [facility] Last Admin: 03/08/21 20:53 Dose: Not Given Documented by: Enoxaparin Sodium (Enoxaparin 40 Mg/0.4 Ml Syringe) 40 mg SQ BID [facility] Last Admin: 03/08/21 20:52 Dose: 40 mg Documented by: Glucose (Dextrose 31 Gm Oral.Susp) 15 gm PO PRN PRN PRN Reason: Hypoglycemia Guaifenesin (Guaifenesin/Dextromethorphan Oral Mague) 10 ml PO Q4HP PRN PRN Reason: Cough Last Admin: 03/06/21 18:33 Dose: 10 ml Documented by: REMDESIVIR 100 mg/ Sodium (Chloride) 250 mls @ 500 mls/hr IV Q24H [facility] Stop: 03/09/21 19:29 Last Infusion: 03/08/21 12:32 Dose: Infused Documented by: Ceftriaxone Sodium 2 gm/ (Dextrose) 50 mls @ 100 mls/hr IV Q24H [facility]; Protocol Last Infusion: 03/08/21 09:00 Dose: Infused Documented by: Azithromycin 500 mg/ Dextrose 250 mls @ 250 mls/hr IV Q24H [facility]; Protocol Stop: 03/09/21 10:59 Last Infusion: 03/08/21 10:00 Dose: Infused Documented by: Potassium Chloride 40 meq/ (Dextrose) 520 mls @ 130 mls/hr IV PRN PRN PRN Reason: Potassium < 3 Magnesium Sulfate (Magnesium Sulfate) 2 gm in 50 mls @ 25 mls/hr IV DAILYP PRN PRN Reason: Magnesium </= 1.6 Ibuprofen (Ibuprofen 600 Mg Tablet) 600 mg PO QIDP PRN; Protocol PRN Reason: Per Pain Protocol/Fever > 101 Last Admin: 03/06/21 18:48 Dose: 600 mg Documented by: Insulin Human Lispro (Insulin Lispro 1 Unit/0.01 Ml Unit) 0 unit SQ ACHS [facility]; Protocol Last Admin: 03/08/21 20:58 Dose: 4 units Documented by: Lactulose (Lactulose 20 Gm/30 Ml Oral.Mague) 10 gm PO DAILYP PRN PRN Reason: Constipation Melatonin (Melatonin 3 Mg Tablet) 6 mg PO HS PRN PRN Reason: Insomnia Last Admin: 03/08/21 21:59 Dose: 6 mg Documented by: Ondansetron HCl (Ondansetron 4 Mg/2 Ml Vial) 4 mg IV Q4HP PRN; Protocol PRN Reason: Nausea And Vomiting Potassium Chloride (Potassium Chloride 20 Meq Tablet) 40 meq PO DAILYP PRN PRN Reason: Potassium is 3-3.5 Potassium Chloride (Potassium Chloride 20 Meq Tablet) 40 meq PO PRN PRN PRN Reason: Potassium < 3 Senna (Sennosides 1 Tablet) 2 tab PO HSP PRN PRN Reason: Constipation Sodium Chloride (0.9 % Sodium Chloride 10 Ml Syringe) 10 ml IV Q8 [facility] Last Admin: 03/09/21 06:34 Dose: 10 ml Documented by: Thyroid (Thyroid, Pork 60 Mg Tablet) 60 mg PO ACB [facility] Last Admin: 03/08/21 07:19 Dose: 60 mg Documented by: A/P Narrative A/P Narrative: A: *Covid pneumonia w/ARDS & concern for bacterial coinfection: -did receive monoclonal ab's prior to admit -CRP/PCT improving *Acute hypoxic respiratory failure: -on 25lpm & 45% *ANYA: improved *Type 2 diabetes mellitus: on metformin -A1c 6.6 *Hypothyroidism: *Obese: *Transaminitis: 2/2 viral illness, stable P: -Remdesivir/Dexamethasone, s/p monoclonal Ab's (03/05). s/p actemra (03/07) -Empiric Abx, -proning/mobilization/oob to chair -O2 supp, wean as able -SSI, metformin -ppx: Lovenox Full code Time Spent With Patient Time: Total time spent is greater than 50% in coordination of care (as documented) at patient's floor/unit and/or counseling patient: QUALITY VTE Deep Vein Thrombosis/Pulmonary Embolism Present on Admission: No
[2021-03-09] MEDS: DOCUSATE SODIUM 100 MG CAPSULE PO SCH ×2 (08:23→21:13)
[2021-03-09] MEDS: DEXAMETHASONE 4 MG TABLET PO SCH (08:31)
[2021-03-09] MEDS: ENOXAPARIN 40 MG/0.4 ML SYRINGE SQ SCH ×2 (08:31→21:13)
[2021-03-09] MEDS: INSULIN GLARGINE, HUMAN 1 UNIT/0.01 ML SQ SCH (08:31)
[2021-03-09] MEDS: THYROID, PORK 60 MG TABLET PO SCH (08:31)
[2021-03-09] MEDS: cefTRIAXone 2 GM in DEXTROSE 5% IN WATER 50 ML IV SCH (08:36)
[2021-03-09] MEDS: INSULIN LISPRO 1 UNIT/0.01 ML UNIT SQ SCH ×4 (09:10→21:14)
[2021-03-09] MEDS: AZITHROMYCIN 500 MG in DEXTROSE 5% IN WATER 250 ML IV SCH (09:30)
[2021-03-09] MEDS: REMDESIVIR 100 MG in 0.9 % SODIUM CHLORIDE 250 ML IV SCH (12:02)
[2021-03-09] MEDS: PANTOPRAZOLE 40 MG PACKET PO SCH (17:31)
[2021-03-09] MEDS: ACETAMINOPHEN 325 MG TABLET PO PRN (17:46)
[2021-03-09] MEDS: BENZONATATE 100 MG CAPSULE PO PRN (21:14)
[2021-03-10] MEDS: 0.9 % SODIUM CHLORIDE 10 ML SYRINGE IV SCH (05:54)
[2021-03-10] MEDS: PANTOPRAZOLE 40 MG PACKET PO SCH (06:55)
[2021-03-10] MEDS: INSULIN LISPRO 1 UNIT/0.01 ML UNIT SQ SCH ×2 (07:44→11:38)
--- NOTE | 2021-03-10 07:54 | Internal Med Progress Note ---
SUBJECTIVE Subjective Patient information: Note initiated : 03/10/21 at 7:53 am Service Date, if different from initiated Date: [] Patient: Buck Zamora 50 y/o M admitted on 03/06/21 for sob. Chief Complaint: [] Interval history: History of present illness: Mr. Zamora is a 50 year old M history of type 2 diabetes mellitus, hypothyroidism, presenting with 6-day history of shortness of breath with nonproductive cough. There was no prior similar episode. Patient is not vaccinated against Covid pneumonia. Status post Tocilizumab on 03/05. Patient denies any sick contact. Patient was in his usual state of health until 6 days ago when he developed sudden onset shortness of breath with nonproductive cough. He is also complaining of chest pain whenever he coughs. He is also committing of respiratory wheezing. He denies any subjective fever or shaking chills or diaphoresis. He is complaining of general body weakness. He denies any muscle aches. Vital signs at ED presentation significant for tachypnea with rate of breathing in the mid 30s, and oxygen desaturation to the 70s on room air. Labs were significant for lack of leukocytosis with WBC 5.1. Serum creatinine elevated to 1.4 with baseline 1.0. Procalcitonin elevated at 2.86. Covid antigen test positive. Chest x-ray showing bilateral pulmonary infiltrates typical for Covid pneumonia. 03/07 Patient is on 35 L/min of 60%. Patient feels comfortable sitting up in chair. Does feel like he is breathing a little better. Does have productive cough. 03/08 Patient little frustrated with the slow progress. Had increased need last night but titrated down to 45 L/min and 55 FiO2 currently. Patient sitting up in chair. 03/09 Patient down to 45% FiO2, was up to 65% yesterday. Feels like his breathing a little bit better and easier. Occasional cough nonproductive. 03/10 Patient feeling better and feels like her breathing better. Making good progress oxygen needs now on 3 L nasal cannula. Review of Systems: denies headache/fever/chills/nausea/vomiting/chest or abdominal pain/diarrhea. Otherwise see above. Constitutional Vitals: Vital Signs Temp Pulse Resp BP Pulse Ox 97.2 F 55 L 20 128/75 91 03/10/21 05:44 03/10/21 06:37 03/10/21 06:37 03/10/21 05:44 03/10/21 06:37 Period Temp Pulse Resp BP Sys/Joyner Pulse Ox Last 24 Hr 96.8 F-98.6 F 48-79 15-31 124-148/75-102 79-97 Intake and Output 03/09/21 03/10/21 03/10/21 21:59 05:59 13:59 Intake Total 920 Output Total 1525 1000 Balance -605 -1000 Weight 99.609 kg Intake & Output: Intake & Output 03/09/21 03/10/21 03/10/21 21:59 05:59 13:59 Intake Total 920 Output Total 1525 1000 Balance -605 -1000 Weight 99.609 kg Intake: Oral 920 Output: Void Amount 1525 1000 Other: Meal Dinner Percent of Meal Consumed 50% Urine Appearance Clear Clear Urine Color Dark Yellow Dark Yellow Urine Odor Normal Stool Size Moderate Moderate Stool Color Brown Brown Stool Consistency Soft Soft # Bowel Movements 1 Exam: General: Alert, Awake, No acute Distress Eyes/N/T: EOMI, Head/Neck: neck supple, CV: RRR, No murmurs, Pulm: Diminished b/l and mild rhonchi/rales clearing, no wheezing Abd: soft, nontender, +BS x4 Ext: no clubbing/cyanosis, trace b/l LE edema Neuro: Alert, no focal deficits, moves all extremities, Skin: warm/dry OBJ DATA Labs CBC & Chem 7: 03/06/21 07:49 03/09/21 05:11 Labs: Abnormal Lab Results 03/09/21 03/08/21 03/08/21 05:11 05:10 05:10 BUN 33 H 37 H Glucose 145 H 159 H AST 45 H 54 H ALT 48 H 44 H Lactate Dehydrogenase 672 H 742 H C-Reactive Protein 2.10 H 4.30 H Total Protein 5.6 L Albumin 3.0 L Triglycerides 198 H Procalcitonin 0.85 H 03/07/21 08:32 BUN Glucose AST ALT Lactate Dehydrogenase C-Reactive Protein 9.40 H Total Protein Albumin Triglycerides Procalcitonin Meds: Medications Acetaminophen (Acetaminophen 325 Mg Tablet) 650 mg PO Q6HP PRN; Protocol PRN Reason: Per Pain Protocol/Fever > 101 Last Admin: 03/09/21 17:46 Dose: 650 mg Documented by: Albuterol/Ipratropium (Ipratropium/Albuterol 3 Ml Ampul.Neb) 3 ml NEB Q4HRT PRN PRN Reason: Wheezing Last Admin: 03/08/21 08:00 Dose: 3 ml Documented by: Benzonatate (Benzonatate 100 Mg Capsule) 0 mg PO Q8HP PRN PRN Reason: cough Last Admin: 03/09/21 21:14 Dose: 200 mg Documented by: Dexamethasone (Dexamethasone 4 Mg Tablet) 6 mg PO DAILY REPLACED BY [facility] Last Admin: 03/09/21 08:31 Dose: 6 mg Documented by: Dextrose (Dextrose 50% 50 Ml Vial) 0 ml IV UD PRN PRN Reason: Hypoglycemia Diagnostic Test (Pha) (Accu-Chek 1 Each Strip) 1 each FS ACHS REPLACED BY [facility] Last Admin: 03/10/21 07:44 Dose: 1 each Documented by: Docusate Sodium (Docusate Sodium 100 Mg Capsule) 100 mg PO BID REPLACED BY [facility] Last Admin: 03/09/21 21:13 Dose: Not Given Documented by: Enoxaparin Sodium (Enoxaparin 40 Mg/0.4 Ml Syringe) 40 mg SQ BID REPLACED BY [facility] Last Admin: 03/09/21 21:13 Dose: 40 mg Documented by: Glucose (Dextrose 31 Gm Oral.Susp) 15 gm PO PRN PRN PRN Reason: Hypoglycemia Guaifenesin (Guaifenesin/Dextromethorphan Oral Mague) 10 ml PO Q4HP PRN PRN Reason: Cough Last Admin: 03/06/21 18:33 Dose: 10 ml Documented by: Ceftriaxone Sodium 2 gm/ (Dextrose) 50 mls @ 100 mls/hr IV Q24H REPLACED BY [facility]; Protocol Last Infusion: 03/09/21 09:10 Dose: Infused Documented by: Potassium Chloride 40 meq/ (Dextrose) 520 mls @ 130 mls/hr IV PRN PRN PRN Reason: Potassium < 3 Magnesium Sulfate (Magnesium Sulfate) 2 gm in 50 mls @ 25 mls/hr IV DAILYP PRN PRN Reason: Magnesium </= 1.6 Ibuprofen (Ibuprofen 600 Mg Tablet) 600 mg PO QIDP PRN; Protocol PRN Reason: Per Pain Protocol/Fever > 101 Last Admin: 03/06/21 18:48 Dose: 600 mg Documented by: Insulin Glargine (Insulin Glargine, Human 1 Unit/0.01 Ml) 5 unit SQ DAILY REPLACED BY [facility] Last Admin: 03/09/21 08:31 Dose: 5 units Documented by: Insulin Human Lispro (Insulin Lispro 1 Unit/0.01 Ml Unit) 0 unit SQ ACHS REPLACED BY [facility]; Protocol Last Admin: 03/10/21 07:44 Dose: Not Given Documented by: Lactulose (Lactulose 20 Gm/30 Ml Oral.Mague) 10 gm PO DAILYP PRN PRN Reason: Constipation Lorazepam (Lorazepam 2 Mg/Ml Vial) 0.5 mg IV Q4-6HP PRN PRN Reason: ANXIETY/SEDATION Last Admin: 03/09/21 21:14 Dose: 0.5 mg Documented by: Melatonin (Melatonin 3 Mg Tablet) 6 mg PO HS PRN PRN Reason: Insomnia Last Admin: 03/08/21 21:59 Dose: 6 mg Documented by: Ondansetron HCl (Ondansetron 4 Mg/2 Ml Vial) 4 mg IV Q4HP PRN; Protocol PRN Reason: Nausea And Vomiting Pantoprazole Sodium (Pantoprazole 40 Mg Packet) 40 mg PO QAMAC REPLACED BY [facility] Last Admin: 03/10/21 06:55 Dose: 40 mg Documented by: Potassium Chloride (Potassium Chloride 20 Meq Tablet) 40 meq PO DAILYP PRN PRN Reason: Potassium is 3-3.5 Potassium Chloride (Potassium Chloride 20 Meq Tablet) 40 meq PO PRN PRN PRN Reason: Potassium < 3 Senna (Sennosides 1 Tablet) 2 tab PO HSP PRN PRN Reason: Constipation Sodium Chloride (0.9 % Sodium Chloride 10 Ml Syringe) 10 ml IV Q8 REPLACED BY [facility] Last Admin: 03/10/21 05:54 Dose: 10 ml Documented by: Thyroid (Thyroid, Pork 60 Mg Tablet) 60 mg PO ACB REPLACED BY [facility] Last Admin: 03/09/21 08:31 Dose: 60 mg Documented by: A/P Narrative A/P Narrative: A: *Covid pneumonia w/ARDS & concern for bacterial coinfection: -did receive monoclonal ab's prior to admit -CRP/PCT improving *Acute hypoxic respiratory failure: -down to 2-3L NC *ANYA: improved *Type 2 diabetes mellitus: on metformin -A1c 6.6 *Hypothyroidism: *Obese: *Transaminitis: 2/2 viral illness, stable P: -Remdesivir/Dexamethasone, s/p monoclonal Ab's (03/05). s/p actemra (03/07) -Empiric Abx, -proning/mobilization/oob to chair -O2 supp, wean as able -SSI, metformin -ppx: Lovenox Full code Time Spent With Patient Time: Total time spent is greater than 50% in coordination of care (as documented) at patient's floor/unit and/or counseling patient: [facility] VTE Deep Vein Thrombosis/Pulmonary Embolism Present on Admission: No
[2021-03-10] MEDS: THYROID, PORK 60 MG TABLET PO SCH (09:18)
[2021-03-10] MEDS: DOCUSATE SODIUM 100 MG CAPSULE PO SCH (09:18)
[2021-03-10] MEDS: INSULIN GLARGINE, HUMAN 1 UNIT/0.01 ML SQ SCH (09:18)
[2021-03-10] MEDS: DEXAMETHASONE 4 MG TABLET PO SCH (09:18)
[2021-03-10] MEDS: cefTRIAXone 2 GM in DEXTROSE 5% IN WATER 50 ML IV SCH (09:18)
[2021-03-10] MEDS: ENOXAPARIN 40 MG/0.4 ML SYRINGE SQ SCH (09:19)
[2021-03-10] MEDS: ACETAMINOPHEN 325 MG TABLET PO PRN (09:33)
--- NOTE | 2021-03-10 09:52 | Discharge Summary ---
Discharge Provider Provider Patient information: Note initiated : 03/10/21 at 9:51 am Service Date, if different from initiated Date: [] Patient: Buck Zamora 50 y/o M admitted on 03/06/21 for sob. Chief Complaint: [] Date of admission: 03/06/21 02:14 Discharge date: 03/10/21 Primary care physician: John Abernathy Consults: 03/06/21 Consult to Physician [CONS] Stat Comment: Consulting Provider: Inder Loving Reason For Exam: Physician to Consult Discharge Meds Discharge Medications Home Medications thyroid (pork) 65 mg tablet 65 mg PO DAILY 30 Days #30 10/10/16 [History Confirmed 03/06/21 Last Taken Unknown] metformin 500 mg tablet 1,000 mg PO BID 01/11/18 [History Confirmed 03/06/21 Last Taken Unknown] albuterol sulfate 90 mcg/actuation aerosol inhaler 2 puff INHALATION .q4-6h PRN #8.5 g 10/30/18 [Rx Confirmed 03/06/21 Last Taken Unknown] benzonatate 100 mg capsule See Rx Instructions PO .q 8 hours PRN #30 cap 03/05/21 [Rx Confirmed 03/06/21 Last Taken Unknown] budesonide-formoterol HFA 160 mcg-4.5 mcg/actuation aerosol inhaler 2 puff INHALATION PRN PRN g 03/05/21 [History Confirmed 03/06/21 Last Taken Unknown] lisinopril 10 mg PO DAILY 03/06/21 [History Confirmed 03/06/21 Last Taken U nknown] melatonin 5 mg PO HS PRN 03/06/21 [History Confirmed 03/06/21 Last Taken Unknown] COURSE Hospital Course Hospital course: Interval history: History of present illness: Mr. Zamora is a 50 year old M history of type 2 diabetes mellitus, hypothyroidism, presenting with 6-day history of shortness of breath with nonproductive cough. There was no prior similar episode. Patient is not vaccinated against Covid pneumonia. Status post Tocilizumab on 03/05. Patient denies any sick contact. Patient was in his usual state of health until 6 days ago when he developed sudden onset shortness of breath with nonproductive cough. He is also complaining of chest pain whenever he coughs. He is also committing of respiratory wheezing. He denies any subjective fever or shaking chills or diaphoresis. He is complaining of general body weakness. He denies any muscle aches. Vital signs at ED presentation significant for tachypnea with rate of breathing in the mid 30s, and oxygen desaturation to the 70s on room air. Labs were significant for lack of leukocytosis with WBC 5.1. Serum creatinine elevated to 1.4 with baseline 1.0. Procalcitonin elevated at 2.86. Covid antigen test positive. Chest x-ray showing bilateral pulmonary infiltrates typical for Covid pneumonia. 03/07 Patient is on 35 L/min of 60%. Patient feels comfortable sitting up in chair. Does feel like he is breathing a little better. Does have productive cough. 03/08 Patient little frustrated with the slow progress. Had increased need last night but titrated down to 45 L/min and 55 FiO2 currently. Patient sitting up in chair. 03/09 Patient down to 45% FiO2, was up to 65% yesterday. Feels like his breathing a little bit better and easier. Occasional cough nonproductive. 03/10 Patient feeling better and feels like her breathing better. Making good progress oxygen needs now on 3 L nasal cannula. *Patient doing well on several liters of oxygen today even while ambulating. Patient will go home on oxygen A/P Narrative: A: *Covid pneumonia w/ARDS & concern for bacterial coinfection: -did receive monoclonal ab's prior to admit -CRP/PCT improving *Acute hypoxic respiratory failure: -down to 2-3L NC *ANYA: improved *Type 2 diabetes mellitus: on metformin -A1c 6.6 *Hypothyroidism: *Obese: *Transaminitis: 2/2 viral illness, stable Discharge diagnosis: Covid pneumonia [place] acute hypoxic respite failure ANYA Secondary discharge diagnosis: Diabetes hypothyroidism obesity transaminitis Time Spent with Patient Time attestation: Total time spent providing and/or coordinating discharge services: Time spent: Greater than 30 minutes EXAM Constitutional Vitals: Temp Pulse Resp BP Pulse Ox 97.6 F 64 21 139/89 93 03/10/21 07:29 03/10/21 09:40 03/10/21 07:29 03/10/21 07:29 03/10/21 09:40 Discharge Data Data Completed and Pending Labs on day of discharge: Labs from last 24 hours 03/10/21 08:05 TSH 0.60 Discharge Plan Patient/Caregiver Discharge Instructions Activity: increase activity as tolerated Diet: Consistent Carbohydrate Instructions: COVID-19 Activity Restrictions/Additional Instructions: Patient will require home oxygen for Covid pneumonia Prescriptions: Continued thyroid (pork) 65 MG tablet 65 mg PO DAILY 30 Days Qty: 30 RF: 0 budesonide-formoterol 160-4.5 mcg/actuation HFA aerosol inhaler 2 puff inhalation PRN PRN (Reason: Shortness Of Breath Or Wheezing) RF: 0 benzonatate [Tessalon Perles] 100 mg capsule See Rx Instructions PO .q 8 hours PRN (Reason: cough) Qty: 30 RF: 0 metformin 500 mg tablet 1,000 mg PO BID RF: 0 albuterol sulfate [ProAir HFA] 90 mcg/actuation HFA aerosol inhaler 2 puff inhalation .q4-6h PRN (Reason: cough, shortness of breath, wheezing) Qty: 8.5 RF: 0 lisinopril 10 mg tablet 10 mg PO DAILY RF: 0 melatonin 5 mg Tablet 5 mg PO HS PRN (Reason: Insomnia) RF: 0 Follow Up Plan Follow up with: John Abernathy MD [Primary Care Provider] - Patient Disposition: Home, Self-Care Prognosis: Fair Overall status at discharge: patient is progressing back to baseline Discharge Orders: Discharge Order (Routine); Ordered 03/10/21 Ordered By: Duglas Tanner [facility] VTE Deep Vein Thrombosis/Pulmonary Embolism Present on Admission: No
== END 2021-03-10 15:45 | disposition home or self-care (01) | DRG 177 ==
LOC: ED 22:51 → ICU 03-06 02:14
PROVIDERS: ADMIT Internal Medicine; ATTEND Internal Medicine

== ENCOUNTER 2022-03-19 01:27 | Inpatient (IN) ==
[2022-03-19] MEDS ORDERED: IOPAMIDOL 100 ML BOTTLE IV ONE (01:28)
--- NOTE | 2022-03-19 01:33 | Emergency Department Note ---
HPI General Chief complaint: Abdominal Pain Stated complaint: Left upper quadrant abdominal pain Time Seen by Provider: 03/19/22 01:32 Source: patient Mode of arrival: ambulatory Limitations: no limitations History of Present Illness HPI Narrative: Narrative: Patient is a 51-year-old male with a past medical history of hypertension, type 2 diabetes, hypothyroidism, and dyslipidemia who presents to the emergency d [facility] due to abdominal pain. Patient states that he began to have abdominal pain yesterday morning. This has been constant. He describes a dull abdominal pain in the left upper quadrant with radiation to his back. He states that he does have some pain in the right upper quadrant as well. He states that he is having difficulty sleeping because of the pain. He states he does not like to come to see physicians, and so for him to come tonight it must be pretty bad. He denies any other concerns at this time. Related Data Home Medications Medication Instructions Recorded Confirmed thyroid (pork) 65 mg tablet 65 mg PO DAILY 30 days ##30 10/10/16 07/15/21 metformin 500 mg tablet 1,000 mg PO BID 01/11/18 07/15/21 lisinopril 10 mg tablet 10 mg PO DAILY 03/06/21 07/15/21 melatonin 5 mg tablet 5 mg PO HS PRN Insomnia 03/06/21 07/15/21 semaglutide 1 mg/dose (4 mg/3 mL) 1 mg subcut WEEKLY 03/19/22 03/19/22 subcutaneous pen injector (Ozempic) Allergies Allergy/AdvReac Type Severity Reaction Status Date / Time No Known Drug Allergies Allergy Verified 03/19/22 05:43 Review of Systems ROS ROS Narrative: Narrative: Constitutional: Denies fever or weakness Eyes: Denies eye pain or vision change ENT ED: Denies throat pain, hearing loss or rhinorrhea Cardiovascular: Denies chest pain or edema Respiratory: Denies shortness of breath or cough Gastrointestinal: Reports abdominal pain; Denies nausea, vomiting, diarrhea or constipation Genitourinary: Denies dysuria or frequency Musculoskeletal: Reports back pain; Denies myalgia Integumentary: Denies rash or lesions Neurological: Denies headache, weakness, numbness, confusion, abnormal gait or dizziness Endocrine: Denies fatigue or polyuria Hematological/Lymphatic: Denies easy bleeding or easy bruising [facility] Narrative Patient History Narrative: Narrative: Medical/Surgical/Family History All Active Problems (Updated 03/19/22 @ 04:43 by Hal Li MD) Acute pancreatitis (Acute) Bilateral knee pain (Chronic) Bilateral primary osteoarthritis of knee (Chronic) History of femur fracture (Chronic) History of pelvic fracture (Chronic) Osteoarthritis (Acute) Hypertension (Acute) Pulmonary embolism (Acute) T2DM (type 2 diabetes mellitus) (Acute) Stage 1 acute kidney injury (Acute) Pneumonia due to COVID-19 virus (Acute) ANYA (acute kidney injury) (Acute) COVID-19 (Acute) Sinusitis, acute (Acute) Cough (Acute) Chest pain (Acute) Dyspnea (Acute) Dysmetabolic syndrome (Chronic) Hypothyroid (Chronic) Dyslipidemia (Chronic) Medical History (Updated 03/19/22 @ 04:43 by Hal Li MD) Bilateral knee pain Bilateral primary osteoarthritis of knee Clavicle fracture Dyslipidemia associated with weight gain Dysmetabolic syndrome History of femur fracture History of pelvic fracture Hypertension Hypothyroid Influenza A Osteoarthritis Surgical History (Updated 07/16/21 @ 12:26 by Renetta Burgess) H/O knee surgery bilateral ACL repair & reconstruction History of arthroplasty of right shoulder S/P surgical manipulation of ankle joint Status post wrist surgery Family History (Updated 07/16/21 @ 12:26 by Renetta Burgess) Other No pertinent family history Social History Smoking Status: Never smoker Alcohol Intake Frequency: holiday/special occasion only Substance Use: does not use Exam Narrative Narrative: Narrative: General Limitations: no limitations General appearance: Present alert and in no apparent distress; Absent anxious, appears intoxicated or sleepy Head Head: Present atraumatic and normocephalic Eye Eye: Present EOMI; Absent scleral icterus ENT ENT: Present mucous membranes moist; Absent nasal congestion Neck Neck: Present full ROM; Absent tenderness Chest Chest: Present normal inspection and symmetric chest wall rise; Absent tenderness Respiratory Respiratory: Present normal lung sounds bilaterally; Absent respiratory distress or accessory muscle use Cardiovascular Cardiovascular: Present regular rate, normal rhythm and normal heart sounds Adbominal Abdominal: Present soft, tenderness (Right upper quadrant, left upper quadrant, epigastric) and normal bowel sounds; Absent distention, psoas sign, Granado's sign or tenderness at McBurney's Point Extremities Extremities: Present normal inspection and full ROM Back Back: Present normal inspection and full ROM Neurological Neurological: Present alert and oriented X3 Psychiatric Psychiatric: Present normal affect and normal mood Skin Skin: Present warm (WNL), dry and normal color Course Vital Signs Vital signs: Vital Signs Temperature 98.1 F 03/19/22 01:28 Pulse Rate 82 03/19/22 01:28 Respiratory Rate 16 03/19/22 01:28 Blood Pressure 166/108 03/19/22 01:28 Pulse Oximetry (%) 98 03/19/22 01:28 Oxygen Delivery Method 03/19/22 01:28 Temperature 98.1 F 03/19/22 01:28 Pulse Rate 61 03/19/22 04:31 Respiratory Rate 16 03/19/22 01:28 Blood Pressure 149/96 03/19/22 04:31 Pulse Oximetry (%) 97 03/19/22 04:31 Oxygen Delivery Method 03/19/22 01:28 MDM MDM Narrative Medical decision making narrative: Narrative: Patient is a 51-year-old male who presents to the emergency department due to abdominal pain. Differential diagnoses include esophagitis, gastritis, peptic ulcer disease, pancreatitis, hepatitis, partial small bowel obstruction. Patient's labs are significant for a lipase of 181. CT scan demonstrates mild pancreatitis. I have spoken to Dr. Loving who has agreed to admit patient. Lab Data Result diagrams: 03/19/22 02:00 Labs: Lab Results 03/19/22 03/19/22 03/19/22 Range/Units 01:50 02:00 02:00 WBC 9.1 (4.5-11.0) K/mcL RBC 5.36 (4.63-6.08) M/mcL Hgb 15.8 (13.7-17.5) g/dL Hct 46.6 (40.1-51.0) % POC Hct 47.0 (41-55) MCV 86.9 (80.0-100.0) fL MCH 29.5 (26.0-34.0) pg MCHC 33.9 (31.0-36.0) g/dL RDW 13.2 (11.5-14.5) % Plt Count 218 (140-440) K/mcL MPV 9.9 (8.8-12.5) fL Immature Gran % (Auto) 0.2 (0.0-0.5) % Neut % (Auto) 69.1 (38.0-78.0) % Lymph % (Auto) 19.4 (15.5-49.0) % [place] % (Auto) 8.5 (1.0-12.0) % Eos % (Auto) 2.4 (0.0-7.0) % Baso % (Auto) 0.4 (0.0-2.0) % Lymph # (Auto) 1.77 (1.50-4.80) K/mcL [place] # (Auto) 0.78 (0.10-0.90) K/mcL Eos # (Auto) 0.22 (0.00-0.70) K/mcL Baso # (Auto) 0.04 (0.00-0.30) K/mcL Immature Gran # 0.02 (0.00-0.05) K/mcl Absolute Neutrophils 6.31 (1.80-8.00) K/mcL POC Sodium 141 (133-145) POC Potassium 4.1 (3.3-5.1) POC Chloride 105 (96-108) POC Total CO2 26.0 (22-30) POC BUN 22 H (6-20) POC Creatinine 1.1 (0.6-1.2) POC Glucose 125 H (70-105) POC WB Ioniz Calcium 1.16 (1.16-1.32) Total Bilirubin 0.4 (0.1-1.0) mg/dL Direct Bilirubin < 0.2 (0-0.3) mg/dL AST 20 (<40) U/L ALT 33 (<40) U/L Alkaline Phosphatase 79 (39-117) U/L Total Protein 6.7 (5.9-8.4) gm/dL Albumin 4.2 (3.2-5.2) gm/dL Globulin 2.5 (2.2-3.7) gm/dL Triglycerides (<150) mg/dL Lipase 181 H (7-60) U/L 03/19/22 Range/Units 02:00 WBC (4.5-11.0) K/mcL RBC (4.63-6.08) M/mcL Hgb (13.7-17.5) g/dL Hct (40.1-51.0) % POC Hct (41-55) MCV (80.0-100.0) fL MCH (26.0-34.0) pg MCHC (31.0-36.0) g/dL RDW (11.5-14.5) % Plt Count (140-440) K/mcL MPV (8.8-12.5) fL Immature Gran % (Auto) (0.0-0.5) % Neut % (Auto) (38.0-78.0) % Lymph % (Auto) (15.5-49.0) % [place] % (Auto) (1.0-12.0) % Eos % (Auto) (0.0-7.0) % Baso % (Auto) (0.0-2.0) % Lymph # (Auto) (1.50-4.80) K/mcL [place] # (Auto) (0.10-0.90) K/mcL Eos # (Auto) (0.00-0.70) K/mcL Baso # (Auto) (0.00-0.30) K/mcL Immature Gran # (0.00-0.05) K/mcl Absolute Neutrophils (1.80-8.00) K/mcL POC Sodium (133-145) POC Potassium (3.3-5.1) POC Chloride (96-108) POC Total CO2 (22-30) POC BUN (6-20) POC Creatinine (0.6-1.2) POC Glucose (70-105) POC WB Ioniz Calcium (1.16-1.32) Total Bilirubin (0.1-1.0) mg/dL Direct Bilirubin (0-0.3) mg/dL AST (<40) U/L ALT (<40) U/L Alkaline Phosphatase (39-117) U/L Total Protein (5.9-8.4) gm/dL Albumin (3.2-5.2) gm/dL Globulin (2.2-3.7) gm/dL Triglycerides 160 H (<150) mg/dL Lipase (7-60) U/L Discharge Plan Patient/Caregiver Discharge Instructions Pt seen by OBSERVER HELPER/PA only: No Clinical Impression: Acute pancreatitis Patient Disposition: Xfer As Inpt ([facility]) Condition: Good Discharge Date/Time: 03/19/22 05:25
[2022-03-19 01:55] LABS: POC Calcium, Ionized 1.16 (1.16-1.32); POC Creatinine 1.1 (0.6-1.2); POC Potassium 4.1 (3.3-5.1)
[2022-03-19 02:29] LABS: Basophils # (Auto) 0.04 K/mcL (0.00-0.30); Basophils % (Auto) 0.4 % (0.0-2.0); Eosinophils # (Auto) 0.22 K/mcL (0.00-0.70); Eosinophils % (Auto) 2.4 % (0.0-7.0); Hematocrit 46.6 % (40.1-51.0); Hemoglobin 15.8 g/dL (13.7-17.5); Lymphocytes # (Auto) 1.77 K/mcL (1.50-4.80); Lymphocytes % (Auto) 19.4 % (15.5-49.0); Mean Cell Volume 86.9 fL (80.0-100.0); Mean Corpuscular HGB Conc 33.9 g/dL (31.0-36.0); Mean Platelet Volume 9.9 fL (8.8-12.5); Monocytes # (Auto) 0.78 K/mcL (0.10-0.90); Monocytes % (Auto) 8.5 % (1.0-12.0); Neutrophils % (Auto) 69.1 % (38.0-78.0); Platelet Count 218 K/mcL (140-440); RBC 5.36 M/mcL (4.63-6.08); Red Cell Distribution Width 13.2 % (11.5-14.5); WBC 9.1 K/mcL (4.5-11.0)
[2022-03-19 02:46] LABS: ALT/SGPT 33 U/L (<40); AST/SGOT 20 U/L (<40); Albumin 4.2 gm/dL (3.2-5.2); Alkaline Phosphatase 79 U/L (39-117); Bilirubin,Direct < 0.2 mg/dL (0-0.3); Bilirubin,Total 0.4 mg/dL (0.1-1.0); Globulin 2.5 gm/dL (2.2-3.7)
[2022-03-19] MEDS ORDERED: LACTATED RINGERS 1,000 ML IV ONE (02:57)
[2022-03-19] MEDS ORDERED: morphine 2 MG/ML VIAL IV PRN (04:40)
[2022-03-19] MEDS ORDERED: ONDANSETRON 4 MG/2 ML VIAL IV PRN ×2 (04:40→09:05)
--- NOTE | 2022-03-19 05:07 | Cat Scan Report ---
INDICATION: RUQ, LUQ pain/tenderness COMPARISON: None. TECHNIQUE: Axial images were obtained through the abdomen and pelvis. Sagittally and coronally reformatted images. 80 mL Isovue 370 injected intravenously. Oral contrast material was not administered FINDINGS: Examination was initially interpreted by [facility] Lung bases:Negative. No pulmonary parenchymal nodule. No pleural fluid or pericardial fluid Liver:Low density liver consistent with hepatic steatosis. No focal hepatic mass. Liver contour is smooth. Gallbladder, bilary:Calcified gallstones. No gallbladder wall thickening or pericholecystic fluid. No dilated bile ducts Spleen:No splenomegaly. Normal enhancement of splenic and portal veins. Pancreas:No pancreatic mass. Normal pancreatic enhancement. Pancreatic duct is not dilated. There is subtle peripancreatic edema which may indicate mild pancreatitis. This is not definite. Correlation with laboratory values is necessary. Adrenal glands:Negative Kidneys,ureters,bladder:No solid renal mass. No hydronephrosis. No obstructing or nonobstructing calculi. No hydroureter. No ureteral calculus. No bladder stone. No detectable bladder mass. Gastrointestinal:No detectable colonic mass. There is no diverticulitis. Negative small bowel. No mechanical small bowel obstruction. No bowel wall thickening. No focal abnormality. Negative stomach and duodenum. No focal abnormality. Appendix: The appendix is negative Vascular:Negative abdominal aorta. Superior mesenteric artery and celiac trunk are normal. Normal opacification of the inferior mesenteric artery Lymphatic:No retroperitoneal or mesenteric adenopathy Mesentery, peritoneum: No free intraperitoneal fluid. No mesenteric or retroperitoneal mass. No intra-abdominal abscess. Reproductive:Prostate is not well visualized but there is no evidence for prostatic enlargement Musculoskeletal:No lumbar compression fractures. No acute sacral or pelvic fracture. Plate and screw fixation bridging the pubic symphysis. Hips are negative 2.3 cm umbilical hernia defect. Hernia contains only fat IMPRESSION: 1. Hepatic steatosis. No focal hepatic abnormality 2. Cholelithiasis 3. Possible subtle peripancreatic edema. Mild pancreatitis is possible but not definite. Pancreas appears intrinsically normal 4. Small umbilical hernia containing only fat The exam was performed using radiation dose optimization techniques including, but not limited to, automated exposure control, adjustment of the mA and/or kV according to patient size and use of iterative reconstruction technique. Interpreted and Authenticated by: Dereck Felipe 03/19/22
[2022-03-19 05:14] LABS: Triglycerides 160 mg/dL (<150)
[2022-03-19] MEDS: 0.9 % SODIUM CHLORIDE 1,000 ML IV SCH ×3 (05:49→18:36)
--- NOTE | 2022-03-19 08:55 | Internal Med History&Physical ---
HPI History of Present Illness Patient information: Note initiated : 03/19/22 at 8:49 am Service Date, if different from initiated Date: [] Patient: Buck Zamora 51 y/o M admitted on 03/19/22 for Left upper quadrant abdominal pain. Chief Complaint: [abdominal pain] Chief complaint: abdominal pain History of present illness: Mr. Zamora is a 51 year old M history of type 2 diabetes mellitus, hypothyroidism, obesity, presenting with 1 day history of acute onset abdominal pain. There is no prior similar episode. He denies any cigarette smoking, alcohol consumption, or illicit drug use. His PCP increased the dose of his Ozempic about a month ago. Yesterday morning he woke up with 6 out of 10, dull, constant left upper quadrant abdominal pain without radiations. He denies any nausea, vomiting, diarrhea, or constipation's. He denies any fever, chills, or diaphoresis. He has no recent strenuous exercise or trauma or injury associated. He presented to our ED last evening for further evaluations. Vital signs within normal limits. Labs significant for lack of leukocytosis with WBC 9.1. Lipase 181, triglyceride 160. CT of the abdomen and pelvis showing peripancreatic edema and also cholelithiasis, suggesting the presence of gallstone pancreatitis. Constitutional Constitutional: Absent chills, excessive sweating, fatigue, fever(s) or weakness EENT Eyes: Absent blurry vision, change in vision, loss of vision or other visual disturbances Ears: Absent decreased hearing or tinnitus Nose, mouth and throat: Absent abnormal hearing, dry mouth, headache(s), nasal congestion or sore throat Cardiovascular Cardiovascular: Absent chest pain, chest pain at rest, edema, irregular heart rhythm or palpatations Respiratory Respiratory: Absent cough, dyspnea or wheezing Gastrointestinal Gastrointestinal: Present abdominal pain; Absent constipation, diarrhea, nausea or vomiting Musculoskeletal Musculoskeletal: Absent back pain, deformity, limited range of motion, muscle cramps, muscle weakness or numbness Integumentary Integumentary: Absent lesions, rash or wounds Neurological Neurological: Absent focal weakness, headache(s) or numbness Psychiatric Psychiatric: Absent anxiety, depression or hallucinations PFSH PFSH All Active Problems (Updated 03/19/22 @ 08:52 by Inder Loving MD) Obesity (BMI 35.0-39.9 without comorbidity) (Acute) Gallstone pancreatitis (Acute) Acute pancreatitis (Acute) Bilateral knee pain (Chronic) Bilateral primary osteoarthritis of knee (Chronic) History of femur fracture (Chronic) History of pelvic fracture (Chronic) Osteoarthritis (Acute) Hypertension (Acute) Pulmonary embolism (Acute) T2DM (type 2 diabetes mellitus) (Acute) Stage 1 acute kidney injury (Acute) Pneumonia due to COVID-19 virus (Acute) ANYA (acute kidney injury) (Acute) COVID-19 (Acute) Sinusitis, acute (Acute) Cough (Acute) Chest pain (Acute) Dyspnea (Acute) Dysmetabolic syndrome (Chronic) Hypothyroid (Chronic) Dyslipidemia (Chronic) Medical History (Updated 03/19/22 @ 08:52 by Inder Loving MD) Bilateral knee pain Bilateral primary osteoarthritis of knee Clavicle fracture Dyslipidemia associated with weight gain Dysmetabolic syndrome History of femur fracture History of pelvic fracture Hypertension Hypothyroid Influenza A Osteoarthritis Surgical History (Updated 07/16/21 @ 12:26 by Renetta Burgess) H/O knee surgery bilateral ACL repair & reconstruction History of arthroplasty of right shoulder S/P surgical manipulation of ankle joint Status post wrist surgery Family History (Updated 07/16/21 @ 12:26 by Renetta Burgess) Other No pertinent family history Social History (Updated 07/16/21 @ 12:27 by Renetta Burgess) marital status: single education level: college occupational status: employed occupation: self smoking status: Never smoker alcohol intake frequency: holiday/special occasion only substance use type: does not use MEDS/ALLERGIES Home Medications and Allergies Home Medications Medication Instructions Recorded Confirmed Type thyroid (pork) 65 mg tablet 65 mg PO DAILY 30 days ##30 10/10/16 03/19/22 History metformin 500 mg tablet 1,000 mg PO BID 01/11/18 03/19/22 History lisinopril 10 mg tablet 10 mg PO DAILY 03/06/21 03/19/22 History melatonin 5 mg tablet 5 mg PO HS PRN Insomnia 03/06/21 03/19/22 History semaglutide 1 mg/dose (4 mg/3 mL) 1 mg subcut WEEKLY 03/19/22 03/19/22 History subcutaneous pen injector (Ozempic) Allergies Allergy/AdvReac Type Severity Reaction Status Date / Time No Known Drug Allergies Allergy Verified 03/19/22 05:43 EXAM Constitutional Vitals: Temp Pulse Resp BP Pulse Ox O2 Del Method 36.6 C 70 20 136/89 95 03/19/22 08:00 03/19/22 08:00 03/19/22 08:00 03/19/22 08:00 03/19/22 08:00 03/19/22 08:00 General appearance: cooperative and no acute distress Head Head exam: Present atraumatic and normocephalic Eye Eye exam: Present EOMI and PERRL ENT ENT exam: Present mucous membranes moist, normal exam and normal external ear exam Neck Neck exam: Present normal inspection; Absent lymphadenopathy, tenderness or thyromegaly Respiratory Respiratory exam: Absent accessory muscle use, respiratory distress or wheezes Cardiovascular Cardiovascular exam: Present normal rate and rhythm; Absent JVD GI/Abdominal GI/Abdominal exam: Present normal bowel sounds, soft and tenderness; Absent organomegaly Rectal Rectal exam: Present deferred Extremities Exam Extremities exam: Present full ROM, normal capillary refill and normal inspection; Absent tenderness Neurological Exam Neurological exam: Present alert, CN II-XII intact and oriented X3; Absent motor sensory deficit Psychiatric Psychiatric exam: Present normal affect and normal mood; Absent anxious or depressed Skin Skin exam: Present dry and intact DATA Data Completed and Pending Labs: Labs from last 24 hours 03/19/22 03/19/22 03/19/22 02:00 02:00 02:00 WBC 9.1 RBC 5.36 Hgb 15.8 Hct 46.6 POC Hct MCV 86.9 MCH 29.5 MCHC 33.9 RDW 13.2 Plt Count 218 MPV 9.9 Immature Gran % (Auto) 0.2 Neut % (Auto) 69.1 Lymph % (Auto) 19.4 [place] % (Auto) 8.5 Eos % (Auto) 2.4 Baso % (Auto) 0.4 Lymph # (Auto) 1.77 [place] # (Auto) 0.78 Eos # (Auto) 0.22 Baso # (Auto) 0.04 Immature Gran # 0.02 Absolute Neutrophils 6.31 POC Sodium POC Potassium POC Chloride POC Total CO2 POC BUN POC Creatinine POC Glucose POC WB Ioniz Calcium Total Bilirubin 0.4 Direct Bilirubin < 0.2 AST 20 ALT 33 Alkaline Phosphatase 79 Total Protein 6.7 Albumin 4.2 Globulin 2.5 Triglycerides 160 H Lipase 181 H 03/19/22 01:50 WBC RBC Hgb Hct POC Hct 47.0 MCV MCH MCHC RDW Plt Count MPV Immature Gran % (Auto) Neut % (Auto) Lymph % (Auto) [place] % (Auto) Eos % (Auto) Baso % (Auto) Lymph # (Auto) [place] # (Auto) Eos # (Auto) Baso # (Auto) Immature Gran # Absolute Neutrophils POC Sodium 141 POC Potassium 4.1 POC Chloride 105 POC Total CO2 26.0 POC BUN 22 H POC Creatinine 1.1 POC Glucose 125 H POC WB Ioniz Calcium 1.16 Total Bilirubin Direct Bilirubin AST ALT Alkaline Phosphatase Total Protein Albumin Globulin Triglycerides Lipase A/P Assessment and plan (1) Gallstone pancreatitis: Status: Acute (2) T2DM (type 2 diabetes mellitus): Status: Acute (3) Hypothyroid: Status: Chronic Qualifiers: Hypothyroidism type: acquired Qualified Code(s): E03.9 - Hypothyroidism, unspecified (4) Obesity (BMI 35.0-39.9 without comorbidity): Status: Acute Narrative A/P Narrative: Assessment and Plans: 1. Gallstone pancreatitis: Inpatient med surg Consult general surgeon Dr. Cohen for surgical management, recs. appreciated NPO with NS@150cc/hr Zofran Oxycodone Morphine Hold oral hypoglycemics 2. T2DM: HgA1c Hold oral hypoglycemics Accu Chek q6hr SSI q6hr Hypoglycemia protocol NPO with NS@150cc/hr 3. Hypothyroidism: Continue thyroid replacement therapy 4. 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 on lifestyle modifications including regular exercise and healthy diet in order to lose weight GI ppx: not currently indicated DVT ppx: SCDs Code status: Full Prognosis: guarded Disposition: inpatient med surg Time Spent With Patient Time: Total time spent is greater than 50% in coordination of care (as documented) at patient's floor/unit and/or counseling patient: Total time spent with greater than 50% in coordination of care (as documented) at patient's floor/unit and/or counseling patient:: 50 - 70 minutes Critical Care Time: No QUALITY VTE Deep Vein Thrombosis/Pulmonary Embolism Present on Admission: No
[2022-03-19] MEDS ORDERED: THYROID 65 MG PO SCH (09:00)
[2022-03-19] MEDS ORDERED: traZODone HCL 50 MG TABLET PO PRN (09:05)
[2022-03-19] MEDS ORDERED: DEXTROSE 31 GM ORAL.SUSP PO PRN (09:05)
[2022-03-19] MEDS ORDERED: IPRATROPIUM/ALBUTEROL 3 ML AMPUL.NEB NEB PRN (09:05)
[2022-03-19] MEDS ORDERED: oxyCODONE HCL 5 MG TABLET PO PRN (09:05)
[2022-03-19] MEDS ORDERED: DEXTROSE 50% 50 ML VIAL IV PRN (09:05)
[2022-03-19] MEDS: LISINOPRIL 10 MG TABLET PO SCH (12:05)
[2022-03-19] MEDS: DOCUSATE SODIUM 100 MG CAPSULE PO SCH ×2 (12:06→21:29)
[2022-03-19] MEDS: INSULIN LISPRO 1 UNIT/0.01 ML UNIT SQ SCH ×3 (12:08→23:09)
[2022-03-19 12:42] LABS: Hemoglobin A1C 5.5 % Hgb (4.0-6.0)
--- NOTE | 2022-03-19 13:32 | General Surg History&Physical ---
HPI History of Present Illness Patient information: Note initiated : 03/19/22 at 1:20 pm Service Date, if different from initiated Date: [] Patient: Buck Zamora 51 y/o M admitted on 03/19/22 for Left upper quadrant abdominal pain. Chief Complaint: [] Chief complaint: Left upper quadrant pain; gallstones disease History of present illness: Mr. Zamora is a 51 year old M with history of acute onset of left upper quadrant pain on yesterday after eating. He had nausea but no vomiting. The pain did not radiate through to his. He has not had any change in bowel movements. He was still having some epigastric and left upper quadrant discomfort at this time. He rarely uses alcohol and he has not had any history of hyperlipidemia. His lipase was elevated and he has multiple gallstones in his gallbladder. He has mild biliary pancreatitis however his LFTs including bilirubin and alkaline phosphatase are not significantly elevated. He is counseled for cholecystectomy which will be performed on Thursday.. Review of Systems All systems: reviewed and no additional remarkable complaints except as stated (Patient negative except as related to history of present illness) PFSH PFSH All Active Problems Obesity (BMI 35.0-39.9 without comorbidity) (Acute) Gallstone pancreatitis (Acute) Acute pancreatitis (Acute) Bilateral knee pain (Chronic) Bilateral primary osteoarthritis of knee (Chronic) History of femur fracture (Chronic) History of pelvic fracture (Chronic) Osteoarthritis (Acute) Hypertension (Acute) Pulmonary embolism (Acute) T2DM (type 2 diabetes mellitus) (Acute) Stage 1 acute kidney injury (Acute) Pneumonia due to COVID-19 virus (Acute) ANYA (acute kidney injury) (Acute) COVID-19 (Acute) Sinusitis, acute (Acute) Cough (Acute) Chest pain (Acute) Dyspnea (Acute) Dysmetabolic syndrome (Chronic) Hypothyroid (Chronic) Dyslipidemia (Chronic) Medical History Bilateral knee pain Bilateral primary osteoarthritis of knee Clavicle fracture Dyslipidemia associated with weight gain Dysmetabolic syndrome History of femur fracture History of pelvic fracture Hypertension Hypothyroid Influenza A Osteoarthritis Surgical History H/O knee surgery bilateral ACL repair & reconstruction History of arthroplasty of right shoulder S/P surgical manipulation of ankle joint Status post wrist surgery Family History Other No pertinent family history Social History marital status: single education level: college occupational status: employed occupation: self smoking status: Never smoker alcohol intake frequency: holiday/special occasion only substance use type: does not use MEDS/ALLERGIES Home Medications and Allergies Home Medications Medication Instructions Recorded Confirmed Type lisinopril 10 mg tablet 10 mg PO DAILY 03/06/21 03/19/22 History melatonin 5 mg tablet 5 mg PO HS PRN Insomnia 03/06/21 03/19/22 History metformin 500 mg 24 hr 1,000 mg PO BID 03/19/22 03/19/22 History tablet,extended release semaglutide 1 mg/dose (4 mg/3 mL) 1 mg subcut WEEKLY 03/19/22 03/19/22 History subcutaneous pen injector (Ozempic) thyroid 60 mg tablet 60 mg PO DAILY 03/19/22 03/19/22 History Allergies Allergy/AdvReac Type Severity Reaction Status Date / Time No Known Drug Allergies Allergy Verified 03/19/22 05:43 Physical Examination Vital Signs Vital signs: Temp Pulse Resp BP Pulse Ox O2 Del Method 98.2 F 77 20 144/94 97 03/19/22 12:00 03/19/22 12:00 03/19/22 08:00 03/19/22 12:00 03/19/22 12:00 03/19/22 12:00 General physical appearance General physical exam: well developed, well nourished, no distress and no pain; negative moderate distress ENT ENT exam: normal nares and normal mucosa Head Head exam IM: Present atraumatic, normal inspection and normocephalic Neck Neck exam: no masses, no bruits, trachea midline, no lymphadenopathy and no venous distension Cardiovascular Cardiovascular exam IM: Present normal rate and rhythm, RRR, +S1 and +S2; Absent gallop or JVD Respiratory Respiratory exam: normal expansion, normal respiratory effort and clear to auscultation Abdomen Abdomen: Present soft, non tender and bowel sounds; Absent tender Hernia: Present umbilical Integumentary Integumentary: Present no rash, no growths and no abnormal pigmentation Neurologic Neurologic: Present normal coordination and normal sensation Musculoskeletal Musculoskeletal: Present normal gait and normal posture Psychiatric Psychiatric: Present oriented to time, oriented to person, oriented to place, speech is normal and memory intact Results Labs Result diagrams: 03/19/22 02:00 Labs: Abnormal lab results 03/19/22 03/19/22 03/19/22 Range/Units 01:50 02:00 02:00 POC BUN 22 H (6-20) POC Glucose 125 H (70-105) Triglycerides 160 H (<150) mg/dL Lipase 181 H (7-60) U/L Diabetes panel 03/19/22 03/19/22 03/19/22 Range/Units 01:55 02:00 02:00 Hemoglobin A1c 5.5 (4.0-6.0) % Hgb AST 20 (<40) U/L ALT 33 (<40) U/L Alkaline Phosphatase 79 (39-117) U/L Total Protein 6.7 (5.9-8.4) gm/dL Albumin 4.2 (3.2-5.2) gm/dL Triglycerides 160 H (<150) mg/dL Calcium panel 03/19/22 Range/Units 02:00 Albumin 4.2 (3.2-5.2) gm/dL Adrenal panel 03/19/22 Range/Units 02:00 Total Bilirubin 0.4 (0.1-1.0) mg/dL AST 20 (<40) U/L ALT 33 (<40) U/L Alkaline Phosphatase 79 (39-117) U/L Total Protein 6.7 (5.9-8.4) gm/dL Albumin 4.2 (3.2-5.2) gm/dL All other labs normal. A/P Assessment and plan (1) Gallstone pancreatitis: Status: Acute (2) Obesity (BMI 35.0-39.9 without comorbidity): Status: Acute (3) Hypertension: Status: Acute (4) T2DM (type 2 diabetes mellitus): Status: Acute Plan Patient will be treated with IV antibiotics LFTs, , lipase will be repeated in the morning he is counseled for laparoscopic cholecystectomy on Thursday Sepsis Sepsis Identified: No Time Spent With Patient Time: Total time spent is greater than 50% in coordination of care (as documented) at patient's floor/unit and/or counseling patient:
[2022-03-19] MEDS: CEFEPIME 2 GM VIAL IV SCH ×2 (15:33→21:29)
[2022-03-19] MEDS: 0.9 % SODIUM CHLORIDE 10 ML SYRINGE IV SCH ×2 (15:33→21:29)
[2022-03-19] MEDS: ACETAMINOPHEN 325 MG TABLET PO PRN (17:04)
[2022-03-19] MEDS: SENNOSIDES 1 TABLET PO SCH (21:28)
[2022-03-20] MEDS: 0.9 % SODIUM CHLORIDE 1,000 ML IV SCH ×4 (01:24→20:52)
[2022-03-20] MEDS: MELATONIN 3 MG TABLET PO PRN ×2 (02:01→21:07)
[2022-03-20] MEDS: ACETAMINOPHEN 325 MG TABLET PO PRN ×2 (02:01→21:06)
[2022-03-20] MEDS: CEFEPIME 2 GM VIAL IV SCH ×3 (06:10→22:32)
[2022-03-20] MEDS: INSULIN LISPRO 1 UNIT/0.01 ML UNIT SQ SCH ×4 (06:13→23:48)
[2022-03-20] MEDS: 0.9 % SODIUM CHLORIDE 10 ML SYRINGE IV SCH ×3 (06:13→21:01)
[2022-03-20 07:24] LABS: Basophils # (Auto) 0.03 K/mcL (0.00-0.30); Basophils % (Auto) 0.5 % (0.0-2.0); Eosinophils # (Auto) 0.15 K/mcL (0.00-0.70); Eosinophils % (Auto) 2.6 % (0.0-7.0); Hematocrit 45.8 % (40.1-51.0); Hemoglobin 15.1 g/dL (13.7-17.5); Lymphocytes # (Auto) 1.54 K/mcL (1.50-4.80); Lymphocytes % (Auto) 27.1 % (15.5-49.0); Mean Cell Volume 87.9 fL (80.0-100.0); Mean Platelet Volume 9.8 fL (8.8-12.5); Monocytes # (Auto) 0.52 K/mcL (0.10-0.90); Monocytes % (Auto) 9.2 % (1.0-12.0); Neutrophils % (Auto) 60.4 % (38.0-78.0); Platelet Count 198 K/mcL (140-440); RBC 5.21 M/mcL (4.63-6.08); WBC 5.7 K/mcL (4.5-11.0)
[2022-03-20 08:24] LABS: ALT/SGPT 26 U/L (<40); AST/SGOT 14 U/L (<40); Albumin 3.9 gm/dL (3.2-5.2); Alkaline Phosphatase 75 U/L (39-117); Bilirubin,Total 0.7 mg/dL (0.1-1.0); Blood Urea Nitrogen 9 mg/dL (6-20); Calcium 8.5 mg/dL (8.6-10.4); Carbon Dioxide 26 mmol/L (22-30); Chloride 103 mmol/L (96-108); Glomerular Filtration Rate 98; Glucose 92 mg/dL (70-105); Phosphorous 2.7 mg/dL (2.5-4.5)
[2022-03-20] MEDS ORDERED: THYROID 60 MG PO SCH (09:00)
[2022-03-20] MEDS ORDERED: LISINOPRIL 10 MG TABLET PO SCH (09:00)
[2022-03-20] MEDS: THYROID, PORK 60 MG TABLET PO SCH (09:50)
[2022-03-20] MEDS: LISINOPRIL 10 MG TABLET PO SCH (09:50)
[2022-03-20] MEDS: DOCUSATE SODIUM 100 MG CAPSULE PO SCH ×2 (09:53→21:01)
--- NOTE | 2022-03-20 14:16 | Internal Med Progress Note ---
SUBJECTIVE Subjective Patient information: Note initiated : 03/20/22 at 2:12 pm Service Date, if different from initiated Date: [] Patient: Buck Zamora 51 y/o M admitted on 03/19/22 for Left upper quadrant abdominal pain. Chief Complaint: [] Interval history: Mr. Zamora is a 51 year old M history of type 2 diabetes mellitus, hypothy roidism, obesity, presenting with 1 day history of acute onset abdominal pain. There is no prior similar episode. He denies any cigarette smoking, alcohol consumption, or illicit drug use. His PCP increased the dose of his Ozempic about a month ago. Yesterday morning he woke up with 6 out of 10, dull, constant left upper quadrant abdominal pain without radiations. He denies any nausea, vomiting, diarrhea, or constipation's. He denies any fever, chills, or diaphoresis. He has no recent strenuous exercise or trauma or injury associated. He presented to our ED last evening for further evaluations. Vital signs within normal limits. Labs significant for lack of leukocytosis with WBC 9.1. Lipase 181, triglyceride 160. CT of the abdomen and pelvis showing peripancreatic edema and also cholelithiasis, suggesting the presence of gallstone pancreatitis. 03/20: There was no major overnight events. Lipase decreased from 1 81-65 this morning. Patient is coming of 2 out of 10 and left upper quadrant abdominal pain without radiations. He denies any nausea or vomiting. He is tolerating the clear liquid diet provided. Denies any shortness of breath. Denies any chest pain. Denies any fever chills or diaphoresis. Continue clear liquid diet right now n.p.o. after midnight. Continue cefepime and IV for now. Continue to provide symptomatic measures. Dr. Cohen will take the patient to the OR out tomorrow Monday, March 21, 2022 for laparoscopic cholecystectomy. Constitutional Vitals: Vital Signs Temp Pulse Resp BP Pulse Ox O2 Del Method 36.5 C 73 16 132/82 95 03/20/22 07:56 03/20/22 07:56 03/20/22 07:56 03/20/22 07:56 03/20/22 07:56 03/20/22 07:56 Period Temp Pulse Resp BP Sys/Joyner Pulse Ox O2 Del Method O2 Flow Rate Last 24 Hr 36.1 C-36.9 C 68-75 14-20 124-142/74-90 92-96 Room Air-Room Air Intake and Output 03/20/22 03/20/22 03/20/22 05:59 13:59 21:59 Intake Total 1200 1020 Output Total 1400 925 Balance -200 95 Intake & Output: Intake & Output 03/20/22 03/20/22 03/20/22 05:59 13:59 21:59 Intake Total 1200 1020 Output Total 1400 925 Balance -200 95 Intake: IV 1000 1020 Sodium Chloride 0.9% 1,000 ml @ 1000 1020 150 mls/hr IV .Q6H40M [facility] Rx#: [id number] Oral 200 Output: Void Amount 1400 925 Other: Urine Appearance Clear Clear Urine Color Yellow Yellow Head Head exam: Present atraumatic and normal inspection Eye Eye exam: Present normal appearance ENT ENT exam: Present mucous membranes moist, normal exam and normal external ear exam Neck Neck exam: Present normal inspection Respiratory Respiratory exam: Present normal respiratory exam Cardiovascular Cardiovascular exam: Present normal rate and rhythm GI/Abdominal GI/Abdominal exam: Present normal bowel sounds and tenderness Back Exam Back exam: Present normal inspection Neurological Exam Neurological exam: Present alert and oriented X3 Skin Skin exam: Present intact and warm OBJ DATA Labs CBC & Chem 7: 03/20/22 05:09 03/20/22 05:09 Labs: Abnormal Lab Results 03/20/22 03/20/22 03/19/22 10:24 05:09 02:00 POC BUN POC Glucose Calcium 8.5 L Globulin 2.0 L Triglycerides 160 H Lipase 65 H 03/19/22 03/19/22 02:00 01:50 POC BUN 22 H POC Glucose 125 H Calcium Globulin Triglycerides Lipase 181 H Meds: Medications Acetaminophen (Acetaminophen 325 Mg Tablet) 650 mg PO Q6HP PRN; Protocol PRN Reason: Per Pain Protocol/Fever > 101 Last Admin: 03/20/22 02:01 Dose: 650 mg Albuterol/Ipratropium (Ipratropium/Albuterol 3 Ml Ampul.Neb) 3 ml NEB Q4HRT PRN PRN Reason: Wheezing Cefepime HCl (Cefepime 2 Gm Vial) 2 gm IV Q8H KRYSTLE; Protocol Last Admin: 03/20/22 06:10 Dose: 2 gm Dextrose (Dextrose 50% 50 Ml Vial) 0 ml IV UD PRN PRN Reason: Per Sliding Scale Diagnostic Test (Pha) (Accu-Chek 1 Each Strip) 1 each FS Q6 [facility] Last Admin: 03/20/22 11:59 Dose: 1 each Docusate Sodium (Docusate Sodium 100 Mg Capsule) 100 mg PO BID [facility] Last Admin: 03/20/22 09:53 Dose: Not Given Glucose (Dextrose 31 Gm Oral.Susp) 15 gm PO PRN PRN PRN Reason: Hypoglycemia Sodium Chloride (Sodium Chloride 0.9%) 1,000 mls @ 100 mls/hr IV .Q10H [facility] Last Admin: 03/20/22 11:16 Dose: Not Given Insulin Human Lispro (Insulin Lispro 1 Unit/0.01 Ml Unit) 0 unit SQ Q6 [facility]; Protocol Last Admin: 03/20/22 11:59 Dose: Not Given Lisinopril (Lisinopril 10 Mg Tablet) 10 mg PO DAILY [facility] Last Admin: 03/20/22 09:50 Dose: 10 mg Melatonin (Melatonin 3 Mg Tablet) 3 mg PO HSP PRN PRN Reason: Insomnia Last Admin: 03/20/22 02:01 Dose: 3 mg Morphine Sulfate (Morphine 2 Mg/Ml Vial) 2 mg IV Q4HP PRN; Protocol PRN Reason: Per Pain Protocol Ondansetron HCl (Ondansetron 4 Mg/2 Ml Vial) 4 mg IV Q6HP PRN PRN Reason: Nausea And Vomiting Oxycodone HCl (Oxycodone Hcl 5 Mg Tablet) 5 mg PO Q4HP PRN; Protocol PRN Reason: Per Pain Protocol Senna (Sennosides 1 Tablet) 2 tab PO HS [facility] Last Admin: 03/19/22 21:28 Dose: 2 tab Sodium Chloride (0.9 % Sodium Chloride 10 Ml Syringe) 10 ml IV Q8 [facility] Last Admin: 03/20/22 06:13 Dose: Not Given Thyroid (Thyroid, Pork 60 Mg Tablet) 60 mg PO DAILY [facility] Last Admin: 03/20/22 09:50 Dose: 60 mg Trazodone HCl (Trazodone Hcl 50 Mg Tablet) 25 mg PO HSP PRN PRN Reason: Insomnia A/P Assessment and plan (1) Gallstone pancreatitis: Status: Acute (2) T2DM (type 2 diabetes mellitus): Status: Acute (3) Hypothyroid: Status: Chronic Qualifiers: Hypothyroidism type: acquired Qualified Code(s): E03.9 - Hypothyroidism, unspecified (4) Obesity (BMI 35.0-39.9 without comorbidity): Status: Acute Narrative A/P Narrative: Assessment and Plans: 1. Gallstone pancreatitis: Inpatient med surg Consult general surgeon Dr. Cohen for surgical management, recs. appreciated--> for scopic cholecystectomy Monday, March 21, 2022 Clear liquid diet, NPO after midnight NS@100cc/hr Zofran Oxycodone Morphine Hold oral hypoglycemics Serial lipase, down trended 2. T2DM: HgA1c 5.5 Hold oral hypoglycemics Accu Chek AC HS SSI AC HS Hypoglycemia protocol Clear liquid diet, NPO after midnight 3. Hypothyroidism: Continue thyroid replacement therapy 4. Obesity: [employer] patient on lifestyle modifications including regular exercise and healthy diet in order to lose weight GI ppx: not currently indicated DVT ppx: SCDs Code status: Full Prognosis: Stable Disposition: inpatient med surg Time Spent With Patient Time: Total time spent is greater than 50% in coordination of care (as documented) at patient's floor/unit and/or counseling patient: QUALITY VTE Deep Vein Thrombosis/Pulmonary Embolism Present on Admission: No
--- NOTE | 2022-03-20 17:22 | Brief Operative Note ---
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
--- NOTE | 2022-03-20 18:23 | General Surgery Progress Note ---
SUBJECTIVE Subjective Patient information: Note initiated : 03/20/22 at 6:20 pm Service Date, if different from initiated Date: [] Patient: Buck Zamora 51 y/o M admitted on 03/19/22 for Left upper quadrant abdominal pain. Chief Complaint: [] Interval history: Patient is doing well. He has no abdominal discomfort. He has tolerated full liquids without difficulty. His lipase is 22 was normal. Patient is counseled for laparoscopic cholecystectomy in the a.m. Constitutional Vitals: Vital Signs Temp Pulse Resp BP Pulse Ox O2 Del Method 98.2 F 75 16 158/90 97 03/20/22 16:00 03/20/22 16:00 03/20/22 16:00 03/20/22 16:00 03/20/22 16:00 03/20/22 16:00 Period Temp Pulse Resp BP Sys/Joyner Pulse Ox O2 Del Method O2 Flow Rate Last 24 Hr 97.0 F-98.2 F 68-75 14-16 124-158/74-90 92-97 Room Air-Room Air Intake and Output 03/20/22 03/20/22 03/20/22 05:59 13:59 21:59 Intake Total 1200 1020 1160 Output Total 1400 925 250 Balance -200 95 910 Weight 234 lb 11.2 oz Patient Weight 03/21/22 05:59 Weight 234 lb 11.2 oz Intake & Output: Intake & Output 03/20/22 03/20/22 03/20/22 05:59 13:59 21:59 Intake Total 1200 1020 1160 Output Total 1400 925 250 Balance -200 95 910 Weight 234 lb 11.2 oz Intake: IV 1000 1020 Sodium Chloride 0.9% 1,000 ml @ 1000 1020 150 mls/hr IV .Q6H40M [facility] Rx#: [id number] Oral 200 1160 Output: Void Amount 1400 925 250 Other: Meal Lunch Percent of Meal Consumed 100% Feeding Ability Independent Urine Appearance Clear Clear Clear Urine Color Yellow Yellow Yellow Urine Odor Normal Respiratory Respiratory exam: Present normal respiratory exam and CTAB Cardiovascular Cardiovascular exam: Present normal rate and rhythm, +S1 and +S2; Absent JVD or RRR GI/Abdominal GI/Abdominal exam: Present normal bowel sounds and soft; Absent distended or tenderness Extremities Exam Extremities exam: Present full ROM, normal capillary refill and neurovascular intact; Absent pedal edema Neurological Exam Neurological exam: Present normal gait and oriented X3; Absent motor sensory deficit Psychiatric Psychiatric exam: Present normal affect and normal mood; Absent anxious A/P Assessment and plan (1) Gallstone pancreatitis: Status: Acute (2) Pulmonary embolism: Status: Acute (3) T2DM (type 2 diabetes mellitus): Status: Acute Plan Patient is here for laparoscopic cholecystectomy following And then will be performed tomorrow Time Spent With Patient Time: Total time spent is greater than 50% in coordination of care (as documented) at patient's floor/unit and/or counseling patient:
[2022-03-20] MEDS: SENNOSIDES 1 TABLET PO SCH (21:01)
[2022-03-21] MEDS: CEFEPIME 2 GM VIAL IV SCH ×3 (05:28→20:59)
[2022-03-21] MEDS: 0.9 % SODIUM CHLORIDE 10 ML SYRINGE IV SCH ×3 (05:28→20:58)
[2022-03-21] MEDS: INSULIN LISPRO 1 UNIT/0.01 ML UNIT SQ SCH ×4 (05:28→20:58)
[2022-03-21 06:54] LABS: Basophils # (Auto) 0.03 K/mcL (0.00-0.30); Basophils % (Auto) 0.5 % (0.0-2.0); Eosinophils # (Auto) 0.22 K/mcL (0.00-0.70); Eosinophils % (Auto) 3.7 % (0.0-7.0); Hematocrit 45.8 % (40.1-51.0); Hemoglobin 15.3 g/dL (13.7-17.5); Lymphocytes # (Auto) 1.37 K/mcL (1.50-4.80); Lymphocytes % (Auto) 22.9 % (15.5-49.0); Mean Cell Volume 87.1 fL (80.0-100.0); Mean Corpuscular HGB Conc 33.4 g/dL (31.0-36.0); Mean Platelet Volume 9.8 fL (8.8-12.5); Monocytes # (Auto) 0.54 K/mcL (0.10-0.90); Neutrophils % (Auto) 63.6 % (38.0-78.0); Platelet Count 203 K/mcL (140-440); RBC 5.26 M/mcL (4.63-6.08)
[2022-03-21 07:21] LABS: ALT/SGPT 22 U/L (<40); AST/SGOT 14 U/L (<40); Albumin 3.9 gm/dL (3.2-5.2); Albumin/Globulin Ratio 2.1 (1.0-2.3); Alkaline Phosphatase 71 U/L (39-117); Bilirubin,Total 0.5 mg/dL (0.1-1.0); Blood Urea Nitrogen 10 mg/dL (6-20); Calcium 8.9 mg/dL (8.6-10.4); Carbon Dioxide 27 mmol/L (22-30); Chloride 103 mmol/L (96-108); Globulin 1.9 gm/dL (2.2-3.7); Glomerular Filtration Rate 87; Glucose 104 mg/dL (70-105); Phosphorous 2.8 mg/dL (2.5-4.5)
[2022-03-21] MEDS: 0.9 % SODIUM CHLORIDE 1,000 ML IV SCH (07:21)
[2022-03-21] MEDS: THYROID, PORK 60 MG TABLET PO SCH (08:04)
[2022-03-21] MEDS: LISINOPRIL 10 MG TABLET PO SCH (08:04)
[2022-03-21] MEDS: DOCUSATE SODIUM 100 MG CAPSULE PO SCH ×2 (08:04→20:58)
[2022-03-21] MEDS ORDERED: SCOPOLAMINE 1 PATCH PATCH TOPICAL PRN (08:30)
[2022-03-21] MEDS ORDERED: MAGNESIUM SULFATE 2 GM/50 ML BAG IV ONE (09:00)
[2022-03-21] MEDS ORDERED: LIDOCAINE HCL/PF 100 MG/5 ML SYRINGE IV ONE (09:00)
[2022-03-21] MEDS ORDERED: PROPOFOL 200 MG/20 ML VIAL IV ONE (09:00)
[2022-03-21] MEDS ORDERED: SUCCINYLCHOLINE 20 MG/ML ML IV ONE (09:00)
[2022-03-21] MEDS ORDERED: MIDAZOLAM 2 MG/2 ML VIAL ONE (09:00)
[2022-03-21] MEDS ORDERED: ONDANSETRON 4 MG/2 ML VIAL ONE (09:00)
[2022-03-21] MEDS ORDERED: GLYCOPYRROLATE 0.2 MG/ML VIAL IV ONE (09:00)
[2022-03-21] MEDS ORDERED: DEXAMETHASONE 10 MG/ML VIAL ONE (09:00)
[2022-03-21] MEDS ORDERED: KETOROLAC 30 MG/ML VIAL ONE (09:00)
[2022-03-21] MEDS ORDERED: KETAMINE 50 MG/ML Syringe (ANEST) IV ONE (09:00)
[2022-03-21] MEDS ORDERED: ROCURONIUM 10 MG/ML ML IV ONE (09:00)
[2022-03-21] MEDS ORDERED: HYDROmorphone 1 MG/ML SYRINGE ONE (09:00)
[2022-03-21] MEDS ORDERED: fentaNYL 100 MCG/2 ML VIAL IV ONE (09:00)
[2022-03-21] MEDS ORDERED: HYDROmorphone 0.5 MG/0.5 ML SYRINGE IV PRN (09:37)
[2022-03-21] MEDS ORDERED: PROMETHAZINE 25 MG/ML VIAL IV PRN (09:37)
[2022-03-21] MEDS ORDERED: NALOXONE HCL 0.4 MG/ML VIAL IV PRN (09:37)
[2022-03-21] MEDS ORDERED: ONDANSETRON 4 MG/2 ML VIAL IV PRN (09:37)
[2022-03-21] MEDS ORDERED: METOPROLOL TARTRATE 5 MG/5 ML VIAL IV PRN (09:37)
[2022-03-21] MEDS ORDERED: IPRATROPIUM/ALBUTEROL 3 ML AMPUL.NEB NEB PRN (09:37)
[2022-03-21] MEDS ORDERED: METHOCARBAMOL 1,000 MG/10 ML VIAL IV PRN (09:37)
[2022-03-21] MEDS ORDERED: LACTATED RINGERS 250 ML IV PRN (09:37)
[2022-03-21] MEDS ORDERED: FLUMAZENIL 0.1 MG/ML ML IV PRN (09:37)
[2022-03-21] MEDS ORDERED: MEPERIDINE 25 MG/ML VIAL IV PRN (09:37)
[2022-03-21] MEDS ORDERED: LABETALOL 5 MG/ML ML IV PRN (09:37)
[2022-03-21] MEDS ORDERED: fentaNYL 100 MCG/2 ML VIAL IV PRN (09:37)
[2022-03-21] MEDS ORDERED: ACETAMINOPHEN 1,000 MG/100 ML BAG IV ONE (09:37)
[2022-03-21] MEDS ORDERED: LACTATED RINGERS 1,000 ML IV SCH (09:45)
--- NOTE | 2022-03-21 10:20 | Brief Operative Note ---
Brief Operative Note Date of procedure: 03/21/22 Pre-op diagnosis: cholelithiasis with cholecystitis ;umbilical hernia Post-op diagnosis: other (cholelithiasis with cholecystitis) Procedure: laparoscopic cholecystectomy umbilical hernia repair Grafts/Implants: No Anesthesia: GETA Findings: dilated gallbladder with stones incarcerated umbilical hernia Complications: none Surgeon: Garett Cohen Estimated blood loss (cc): 15 Specimens Removed/Pathology: other (gallbladder) Condition: stable Disposition: PACU
--- NOTE | 2022-03-21 12:11 | Internal Med Progress Note ---
SUBJECTIVE Subjective Patient information: Note initiated : 03/21/22 at 12:10 pm Service Date, if different from initiated Date: [] Patient: Buck Zamora 51 y/o M admitted on 03/19/22 for Left upper quadrant abdominal pain. Chief Complaint: [] Interval history: Mr. Zamora is a 51 year old M history of type 2 diabetes mellitus, hypoth yroidism, obesity, presenting with 1 day history of acute onset abdominal pain. There is no prior similar episode. He denies any cigarette smoking, alcohol consumption, or illicit drug use. His PCP increased the dose of his Ozempic about a month ago. Yesterday morning he woke up with 6 out of 10, dull, constant left upper quadrant abdominal pain without radiations. He denies any nausea, vomiting, diarrhea, or constipation's. He denies any fever, chills, or diaphoresis. He has no recent strenuous exercise or trauma or injury associated. He presented to our ED last evening for further evaluations. Vital signs within normal limits. Labs significant for lack of leukocytosis with WBC 9.1. Lipase 181, triglyceride 160. CT of the abdomen and pelvis showing peripancreatic edema and also cholelithiasis, suggesting the presence of gallstone pancreatitis. 03/20: There was no major overnight events. Lipase decreased from 1 81-65 this morning. Patient is coming of 2 out of 10 and left upper quadrant abdominal pain without radiations. He denies any nausea or vomiting. He is tolerating the clear liquid diet provided. Denies any shortness of breath. Denies any chest pain. Denies any fever chills or diaphoresis. Continue clear liquid diet right now n.p.o. after midnight. Continue cefepime and IV for now. Continue to provide symptomatic measures. Dr. Cohen will take the patient to the OR out tomorrow Thursday, March 21, 2022 for laparoscopic cholecystectomy. 03/21: Status post laparoscopic cholecystectomy and umbilical hernia repair by general surgeon Dr. Cohen earlier this morning. Patient is coming of mild pain and tenderness around his incision site. Denies any shortness of breath. Started the patient on full liquid diet today and will switch to regular diet tomorrow. Saline lock. Cefepime. Constitutional Vitals: Vital Signs Temp Pulse Resp BP Pulse Ox O2 Del Method O2 Flow Rate 36.6 C 68 18 138/91 96 2 03/21/22 11:15 03/21/22 11:15 03/21/22 11:15 03/21/22 11:15 03/21/22 11:15 03/21/22 11:15 03/21/22 11:15 Period Temp Pulse Resp BP Sys/Joyner Pulse Ox O2 Del Method O2 Flow Rate Last 24 Hr 36.1 C-37.0 C 57-88 11-26 110-158/68-103 88-97 Nasal Cannula- Simple Mask 2-8 Intake and Output 03/20/22 03/21/22 03/21/22 21:59 05:59 13:59 Intake Total 1108 798 5389 Output Total 500 1750 230 Balance 660 -1625 4050 Weight 105.506 kg Intake & Output: Intake & Output 03/20/22 03/21/22 03/21/22 21:59 05:59 13:59 Intake Total 5751 189 3735 Output Total 500 1750 230 Balance 660 -1625 4050 Weight 105.506 kg Intake: IV 2080 Sodium Chloride 0.9% 1,000 ml @ 1980 100 mls/hr IV .Q10H [facility] Rx#: [id number] Oral 1160 125 IV - Manual Only 2200 Output: Void Amount 500 1750 200 Estimated Blood Loss 30 Other: Meal Dinner Percent of Meal Consumed 100% Feeding Ability Independent Urine Appearance Clear Clear Clear Urine Color Yellow Yellow Pale Urine Odor Normal Head Head exam: Present atraumatic and normal inspection Eye Eye exam: Present normal appearance ENT ENT exam: Present mucous membranes moist, normal exam and normal external ear exam Additional comments: Nasal cannula in place Neck Neck exam: Present normal inspection Respiratory Respiratory exam: Present normal respiratory exam Cardiovascular Cardiovascular exam: Present normal rate and rhythm GI/Abdominal GI/Abdominal exam: Present normal bowel sounds Additional comments: Laparoscopic incisions on the abdominal wall, with kalpana in place Back Exam Back exam: Present normal inspection Neurological Exam Neurological exam: Present alert and oriented X3 Skin Skin exam: Present intact and warm OBJ DATA Labs CBC & Chem 7: 03/21/22 05:07 03/21/22 05:07 Labs: Abnormal Lab Results 03/21/22 03/21/22 03/20/22 05:07 05:07 10:24 Lymph # (Auto) 1.37 L POC BUN POC Glucose Calcium Total Protein 5.8 L Globulin 1.9 L Triglycerides Lipase 65 H 03/20/22 03/19/22 03/19/22 05:09 02:00 02:00 Lymph # (Auto) POC BUN POC Glucose Calcium 8.5 L Total Protein Globulin 2.0 L Triglycerides 160 H Lipase 181 H 03/19/22 01:50 Lymph # (Auto) POC BUN 22 H POC Glucose 125 H Calcium Total Protein Globulin Triglycerides Lipase Meds: Medications Acetaminophen (Acetaminophen 325 Mg Tablet) 650 mg PO Q6HP PRN; Protocol PRN Reason: Per Pain Protocol/Fever > 101 Last Admin: 03/20/22 21:06 Dose: 650 mg Albuterol/Ipratropium (Ipratropium/Albuterol 3 Ml Ampul.Neb) 3 ml NEB Q4HRT PRN PRN Reason: Wheezing Cefepime HCl (Cefepime 2 Gm Vial) 2 gm IV Q8H [facility]; Protocol Last Admin: 03/21/22 05:28 Dose: 2 gm Dextrose (Dextrose 50% 50 Ml Vial) 0 ml IV UD PRN PRN Reason: Per Sliding Scale Diagnostic Test (Pha) (Accu-Chek 1 Each Strip) 1 each FS Q6 [facility] Last Admin: 03/21/22 11:35 Dose: Not Given Docusate Sodium (Docusate Sodium 100 Mg Capsule) 100 mg PO BID [facility] Last Admin: 03/21/22 08:04 Dose: Not Given Glucose (Dextrose 31 Gm Oral.Susp) 15 gm PO PRN PRN PRN Reason: Hypoglycemia Sodium Chloride (Sodium Chloride 0.9%) 1,000 mls @ 100 mls/hr IV .Q10H [facility] Last Admin: 03/21/22 07:21 Dose: 100 mls/hr Insulin Human Lispro (Insulin Lispro 1 Unit/0.01 Ml Unit) 0 unit SQ Q6 [facility]; Protocol Last Admin: 03/21/22 11:36 Dose: Not Given Lisinopril (Lisinopril 10 Mg Tablet) 10 mg PO DAILY [facility] Last Admin: 03/21/22 08:04 Dose: Not Given Melatonin (Melatonin 3 Mg Tablet) 3 mg PO HSP PRN PRN Reason: Insomnia Last Admin: 03/20/22 21:07 Dose: 3 mg Morphine Sulfate (Morphine 2 Mg/Ml Vial) 2 mg IV Q4HP PRN; Protocol PRN Reason: Per Pain Protocol Ondansetron HCl (Ondansetron 4 Mg/2 Ml Vial) 4 mg IV Q6HP PRN PRN Reason: Nausea And Vomiting Oxycodone HCl (Oxycodone Hcl 5 Mg Tablet) 5 mg PO Q4HP PRN; Protocol PRN Reason: Per Pain Protocol Senna (Sennosides 1 Tablet) 2 tab PO HS [facility] Last Admin: 03/20/22 21:01 Dose: Not Given Sodium Chloride (0.9 % Sodium Chloride 10 Ml Syringe) 10 ml IV Q8 [facility] Last Admin: 03/21/22 05:28 Dose: Not Given Thyroid (Thyroid, Pork 60 Mg Tablet) 60 mg PO DAILY [facility] Last Admin: 03/21/22 08:04 Dose: Not Given Trazodone HCl (Trazodone Hcl 50 Mg Tablet) 25 mg PO HSP PRN PRN Reason: Insomnia A/P Assessment and plan (1) Gallstone pancreatitis: Status: Acute (2) T2DM (type 2 diabetes mellitus): Status: Acute (3) Hypothyroid: Status: Chronic Qualifiers: Hypothyroidism type: acquired Qualified Code(s): E03.9 - Hypothyroidism, unspecified (4) Obesity (BMI 35.0-39.9 without comorbidity): Status: Acute (5) Umbilical hernia: Status: Acute Narrative A/P Narrative: Assessment and Plans: 1. Gallstone pancreatitis: Inpatient med surg Status post laparoscopic cholecystectomy and umbilical hernia repair by general surgeon Dr. Cohen on 03/21 Full liquid diet today, regular diet tomorrow Saline lock Zofran Oxycodone Morphine Hold oral hypoglycemics Serial lipase, down trended 2. T2DM: HgA1c 5.5 Hold oral hypoglycemics Accu Chek AC HS SSI AC HS Hypoglycemia protocol Full liquid diet today, regular diet tomorrow 3. Hypothyroidism: Continue thyroid replacement therapy 4. Obesity: Building [employer] patient on lifestyle modifications including regular exercise and healthy diet in order to lose weight 5. Umbilical hernia: Status post laparoscopic cholecystectomy and umbilical hernia repair by general surgeon Dr. Cohen on 03/21 GI ppx: not currently indicated DVT ppx: SCDs Code status: Full Prognosis: Stable Disposition: inpatient med surg Time Spent With Patient Time: Total time spent is greater than 50% in coordination of care (as documented) at patient's floor/unit and/or counseling patient: QUALITY VTE Deep Vein Thrombosis/Pulmonary Embolism Present on Admission: No
[2022-03-21] MEDS: ACETAMINOPHEN 325 MG TABLET PO PRN (16:55)
[2022-03-21] MEDS ORDERED: HYDROcodone/APAP 5/325MG TABLET PO PRN (18:49)
[2022-03-21] MEDS: MELATONIN 3 MG TABLET PO PRN (21:07)
[2022-03-21] MEDS: SENNOSIDES 1 TABLET PO SCH (21:55)
[2022-03-22] MEDS: CEFEPIME 2 GM VIAL IV SCH (05:56)
[2022-03-22] MEDS: 0.9 % SODIUM CHLORIDE 10 ML SYRINGE IV SCH (05:57)
[2022-03-22 06:39] LABS: Basophils # (Auto) 0.01 K/mcL (0.00-0.30); Basophils % (Auto) 0.1 % (0.0-2.0); Eosinophils # (Auto) 0.02 K/mcL (0.00-0.70); Eosinophils % (Auto) 0.2 % (0.0-7.0); Hematocrit 44.1 % (40.1-51.0); Hemoglobin 15.1 g/dL (13.7-17.5); Lymphocytes # (Auto) 1.15 K/mcL (1.50-4.80); Mean Corpuscular HGB Conc 34.2 g/dL (31.0-36.0); Mean Platelet Volume 9.8 fL (8.8-12.5); Monocytes # (Auto) 0.63 K/mcL (0.10-0.90); Monocytes % (Auto) 7.7 % (1.0-12.0); Neutrophils % (Auto) 77.5 % (38.0-78.0); Platelet Count 238 K/mcL (140-440); RBC 5.07 M/mcL (4.63-6.08); Red Cell Distribution Width 12.9 % (11.5-14.5); WBC 8.2 K/mcL (4.5-11.0)
[2022-03-22 07:02] LABS: ALT/SGPT 70 U/L (<40); AST/SGOT 38 U/L (<40); Albumin 3.9 gm/dL (3.2-5.2); Albumin/Globulin Ratio 1.8 (1.0-2.3); Alkaline Phosphatase 78 U/L (39-117); Bilirubin,Total 0.5 mg/dL (0.1-1.0); Blood Urea Nitrogen 13 mg/dL (6-20); Calcium 8.9 mg/dL (8.6-10.4); Carbon Dioxide 25 mmol/L (22-30); Chloride 101 mmol/L (96-108); Globulin 2.2 gm/dL (2.2-3.7); Glomerular Filtration Rate 87; Glucose 123 mg/dL (70-105); Phosphorous 3.3 mg/dL (2.5-4.5)
[2022-03-22] MEDS: INSULIN LISPRO 1 UNIT/0.01 ML UNIT SQ SCH ×2 (07:58→11:51)
[2022-03-22] MEDS: LISINOPRIL 10 MG TABLET PO SCH (08:13)
[2022-03-22] MEDS: THYROID, PORK 60 MG TABLET PO SCH (08:13)
[2022-03-22] MEDS: DOCUSATE SODIUM 100 MG CAPSULE PO SCH (08:14)
--- NOTE | 2022-03-22 09:55 | EKG ---
[facility] Test Date: 2022-03-21 Pat Name: Buck Zamora Department: 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
--- NOTE | 2022-03-22 10:53 | Discharge Summary ---
Discharge Provider Provider IMPORTANT FOLLOW-UP INFORMATION FOR PCP: Patient information: Note initiated : 03/22/22 at 10:51 am Service Date, if different from initiated Date: [] Patient: Buck Zamora 51 y/o M admitted on 03/19/22 for Left upper quadrant abdominal pain. Chief Complaint: [] Date of admission: 03/19/22 05:25 Discharge date: 03/22/22 Primary care physician: John Abernathy Attending physician on admission: Inder Loving Consults: 03/19/22 Consult to Physician [CONS] Stat Comment: Consulting Provider: Inder Loving Reason For Exam: Physician to Consult 03/19/22 09:05 Consult to Physician [CONS] Routine Comment: Consulting Provider: Garett Cohen Reason For Exam: Physician to Consult Attending physician on discharge: Inder Guerrier [place] COURSE Hospital Course Hospital course: Mr. Zamora is a 51 year old M history of type 2 diabetes mellitus, hypothyroidism, obesity, presenting with 1 day history of acute onset abdominal pain. There is no prior similar episode. He denies any cigarette smoking, alcohol consumption, or illicit drug use. His PCP increased the dose of his Ozempic about a month ago. Yesterday morning he woke up with 6 out of 10, dull, constant left upper quadrant abdominal pain without radiations. He denies any nausea, vomiting, diarrhea, or constipation's. He denies any fever, chills, or diaphoresis. He has no recent strenuous exercise or trauma or injury associated. He presented to our ED last evening for further evaluations. Vital signs within normal limits. Labs significant for lack of leukocytosis with WBC 9.1. Lipase 181, triglyceride 160. CT of the abdomen and pelvis showing peripancreatic edema and also cholelithiasis, suggesting the presence of gallstone pancreatitis. 03/20: There was no major overnight events. Lipase decreased from 1 81-65 this morning. Patient is coming of 2 out of 10 and left upper quadrant abdominal pain without radiations. He denies any nausea or vomiting. He is tolerating the clear liquid diet provided. Denies any shortness of breath. Denies any chest pain. Denies any fever chills or diaphoresis. Continue clear liquid diet right now n.p.o. after midnight. Continue cefepime and IV for now. Continue to provide symptomatic measures. Dr. Cohen will take the patient to the OR out tomorrow Monday, March 21, 2022 for laparoscopic cholecystectomy. 03/21: Status post laparoscopic cholecystectomy and umbilical hernia repair by general surgeon Dr. Cohen earlier this morning. Patient is coming of mild pain and tenderness around his incision site. Denies any shortness of breath. Started the patient on full liquid diet today and will switch to regular diet tomorrow. Saline lock. Cefepime. 03/22: Discharged home. Discharge diagnosis: Gallstone pancreatitis Time Spent with Patient Time attestation: Total time spent providing and/or coordinating discharge services: Time spent: Less than 30 minutes EXAM Constitutional Vitals: Temp Pulse Resp BP Pulse Ox O2 Del Method O2 Flow Rate 37.0 C 84 20 151/88 98 2 03/22/22 07:29 03/22/22 07:29 03/22/22 07:29 03/22/22 07:29 03/22/22 07:29 03/22/22 07:29 03/21/22 13:00 General appearance: cooperative and no acute distress Head Head exam: Present atraumatic and normocephalic Eye Eye exam: Present EOMI and PERRL ENT ENT exam: Present mucous membranes moist, normal exam and normal external ear exam Neck Neck exam: Present normal inspection; Absent lymphadenopathy, tenderness or thyromegaly Respiratory Respiratory exam: Absent accessory muscle use, respiratory distress or wheezes Cardiovascular Cardiovascular exam: Present normal rate and rhythm; Absent JVD GI/Abdominal GI/Abdominal exam: Present normal bowel sounds and soft; Absent organomegaly or tenderness Additional comments: Multiple laparoscopic surgical incisions with kalpana in place Rectal Rectal exam: Present deferred Extremities Exam Extremities exam: Present full ROM, normal capillary refill and normal inspection; Absent tenderness Neurological Exam Neurological exam: Present alert, CN II-XII intact and oriented X3; Absent motor sensory deficit Psychiatric Psychiatric exam: Present normal affect and normal mood; Absent anxious or depressed Skin Skin exam: Present dry and intact Discharge Data Data Completed and Pending Labs on day of discharge: Labs from last 24 hours 03/22/22 03/22/22 05:07 05:07 WBC 8.2 RBC 5.07 Hgb 15.1 Hct 44.1 MCV 87.0 MCH 29.8 MCHC 34.2 RDW 12.9 Plt Count 238 MPV 9.8 Immature Gran % (Auto) 0.5 Neut % (Auto) 77.5 Lymph % (Auto) 14.0 L [place] % (Auto) 7.7 Eos % (Auto) 0.2 Baso % (Auto) 0.1 Lymph # (Auto) 1.15 L [place] # (Auto) 0.63 Eos # (Auto) 0.02 Baso # (Auto) 0.01 Immature Gran # 0.04 Absolute Neutrophils 6.37 Sodium 137 Potassium 4.7 Chloride 101 Carbon Dioxide 25 Anion Gap 11.0 BUN 13 Creatinine 1.0 GFR Calculation 87 Glucose 123 H Calcium 8.9 Phosphorus 3.3 Magnesium 2.3 Total Bilirubin 0.5 AST 38 ALT 70 H Alkaline Phosphatase 78 Total Protein 6.1 Albumin 3.9 Globulin 2.2 Albumin/Globulin Ratio 1.8 Discharge Plan Patient/Caregiver Discharge Instructions Activity: increase activity as tolerated Diet: Consistent Carbohydrate Prescriptions: New hydrocodone-acetaminophen 5-325 mg Tablet 1 tab PO Q4HP PRN (Reason: Per Pain Protocol) Qty: 10 0RF ondansetron 4 mg tablet,disintegrating 4 mg PO Q8H PRN (Reason: nausea and vomiting) Qty: 10 0RF Continued lisinopril 10 mg tablet 10 mg PO DAILY Label Comments: take 1 tablet by mouth every morning melatonin 5 mg Tablet 5 mg PO HS PRN (Reason: Insomnia) Ozempic 1 mg/dose (4 mg/3 mL) pen injector 1 mg subcut WEEKLY metformin 500 mg Tablet,Er Ailyn.Retention 24 Hr 1,000 mg PO BID thyroid 60 mg Tablet 60 mg PO DAILY Follow Up Plan Follow up with: John Abernathy MD [Primary Care Provider] - Garett Cohen MD [Physician] - Patient Disposition: Home, Self-Care Prognosis: Good Rehab Potential: Good I certify that the patient requires SNF services: No Overall status at discharge: patient is progressing back to baseline Discharge Orders: Discharge Order (Routine); Ordered 03/22/22 Ordered By: Inder REYES VTE Deep Vein Thrombosis/Pulmonary Embolism Present on Admission: No
--- NOTE | 2022-03-22 11:44 | Discharge Summary ---
Discharge Provider Provider IMPORTANT FOLLOW-UP INFORMATION FOR PCP: Patient information: Note initiated : 03/22/22 at 11:41 am Service Date, if different from initiated Date: [] Patient: Buck Zmaora 51 y/o M admitted on 03/19/22 for Left upper quadrant abdominal pain. Chief Complaint: [] Date of admission: 03/19/22 05:25 Discharge date: 03/22/22 Primary care physician: John Abernathy Admitting clinician: Garett Cohen Attending physician on admission: Garett Cohen Consults: 03/19/22 Consult to Physician [CONS] Stat Comment: Consulting Provider: Inder Loving Reason For Exam: Physician to Consult 03/19/22 09:05 Consult to Physician [CONS] Routine Comment: Consulting Provider: Garett Cohen Reason For Exam: Physician to Consult COURSE Time Spent with Patient Time attestation: Total time spent providing and/or coordinating discharge services: Physical Examination Vital Signs Vital signs: Temp Pulse Resp BP Pulse Ox O2 Del Method O2 Flow Rate 98.6 F 84 20 151/88 98 2 03/22/22 07:29 03/22/22 07:29 03/22/22 07:29 03/22/22 07:29 03/22/22 07:29 03/22/22 07:29 03/21/22 13:00 Discharge Plan Patient/Caregiver Discharge Instructions Activity: increase activity as tolerated Diet: Consistent Carbohydrate Prescriptions: New hydrocodone-acetaminophen 5-325 mg Tablet 1 tab PO Q4HP PRN (Reason: Per Pain Protocol) Qty: 10 0RF ondansetron 4 mg tablet,disintegrating 4 mg PO Q8H PRN (Reason: nausea and vomiting) Qty: 10 0RF Continued lisinopril 10 mg tablet 10 mg PO DAILY Label Comments: take 1 tablet by mouth every morning melatonin 5 mg Tablet 5 mg PO HS PRN (Reason: Insomnia) Ozempic 1 mg/dose (4 mg/3 mL) pen injector 1 mg subcut WEEKLY metformin 500 mg Tablet,Er Ailyn.Retention 24 Hr 1,000 mg PO BID thyroid 60 mg Tablet 60 mg PO DAILY Follow Up Plan Follow up with: John Abernathy MD [Primary Care Provider] - Garett Cohen MD [Physician] - Prognosis: Good Rehab Potential: Good I certify that the patient requires SNF services: No Overall status at discharge: patient is progressing back to baseline Discharge Orders: Discharge Order (Routine); Ordered 03/22/22 Ordered By: Inder Loving Pending Pending Pending: Resuscitation Status Resuscitate (Full Code) Diet Regular Diet Start Sat Oct 15 0800 Acetaminophen (Acetaminophen 325 Mg Tablet) 650 mg PO Q6HP PRN; Protocol PRN Reason: Per Pain Protocol/Fever > 101 Last Admin: 03/21/22 16:55 Dose: 650 mg Documented By: Admin: 03/20/22 21:06 Dose: 650 mg Documented By: Admin: 03/20/22 02:01 Dose: 650 mg Documented By: Admin: 03/19/22 17:04 Dose: 650 mg Documented By: ADALBERTO Hydrocodone Bitart/Acetaminophen (Hydrocodone/Apap 5/325mg Tablet) 1 tab PO Q4HP PRN; Protocol PRN Reason: Per Pain Protocol Last Admin: 03/21/22 19:38 Dose: 1 tab Documented By: YAMIL Cefepime HCl (Cefepime 2 Gm Vial) 2 gm IV Q8H [facility]; Protocol Last Admin: 03/22/22 05:56 Dose: 2 gm Documented By: Admin: 03/21/22 20:59 Dose: 2 gm Documented By: Admin: 03/21/22 14:14 Dose: 2 gm Documented By: Admin: 03/21/22 05:28 Dose: 2 gm Documented By: Admin: 03/20/22 22:32 Dose: 2 gm Documented By: Admin: 03/20/22 14:54 Dose: 2 gm Documented By: Admin: 03/20/22 06:10 Dose: 2 gm Documented By: Admin: 03/19/22 21:29 Dose: 2 gm Documented By: Admin: 03/19/22 15:33 Dose: 2 gm Documented By: ADALBERTO Diagnostic Test (Pha) (Accu-Chek 1 Each Strip) 1 each FS ACHS [facility] Last Admin: 03/22/22 11:31 Dose: 1 each Documented By: Admin: 03/22/22 07:26 Dose: 1 each Documented By: Admin: 03/21/22 20:46 Dose: 1 each Documented By: YAMIL Docusate Sodium (Docusate Sodium 100 Mg Capsule) 100 mg PO BID [facility] Last Admin: 03/22/22 08:14 Dose: 100 mg Documented By: Admin: 03/21/22 20:58 Dose: 100 mg Documented By: Admin: 03/21/22 08:04 Dose: Not Given Documented By: Admin: 03/20/22 21:01 Dose: Not Given Documented By: Admin: 03/20/22 09:53 Dose: Not Given Documented By: Admin: 03/19/22 21:29 Dose: Not Given Documented By: Admin: 03/19/22 12:06 Dose: 100 mg Documented By: ADALBERTO Insulin Human Lispro (Insulin Lispro 1 Unit/0.01 Ml Unit) 0 unit SQ ACHS [facility]; Protocol Last Admin: 03/22/22 07:58 Dose: Not Given Documented By: BRIANNA Lisinopril (Lisinopril 10 Mg Tablet) 10 mg PO DAILY [facility] Last Admin: 03/22/22 08:13 Dose: 10 mg Documented By: Admin: 03/21/22 08:04 Dose: Not Given Documented By: Admin: 03/20/22 09:50 Dose: 10 mg Documented By: Admin: 03/19/22 12:05 Dose: 10 mg Documented By: ADALBERTO Melatonin (Melatonin 3 Mg Tablet) 3 mg PO HSP PRN PRN Reason: Insomnia Last Admin: 03/21/22 21:07 Dose: 3 mg Documented By: Admin: 03/20/22 21:07 Dose: 3 mg Documented By: Admin: 03/20/22 02:01 Dose: 3 mg Documented By: IRMA Senna (Sennosides 1 Tablet) 2 tab PO HS [facility] Last Admin: 03/21/22 21:55 Dose: Not Given Documented By: Admin: 03/20/22 21:01 Dose: Not Given Documented By: Admin: 03/19/22 21:28 Dose: 2 tab Documented By: IRMA Sodium Chloride (0.9 % Sodium Chloride 10 Ml Syringe) 10 ml IV Q8 [facility] Last Admin: 03/22/22 05:57 Dose: 10 ml Documented By: Admin: 03/21/22 20:58 Dose: 10 ml Documented By: Admin: 03/21/22 14:15 Dose: Not Given Documented By: Admin: 03/21/22 05:28 Dose: Not Given Documented By: Admin: 03/20/22 21:01 Dose: Not Given Documented By: Admin: 03/20/22 15:39 Dose: Not Given Documented By: Admin: 03/20/22 06:13 Dose: Not Given Documented By: Admin: 03/19/22 21:29 Dose: Not Given Documented By: Admin: 03/19/22 15:33 Dose: 10 ml Documented By: ADALBERTO Thyroid (Thyroid, Pork 60 Mg Tablet) 60 mg PO DAILY [facility] Last Admin: 03/22/22 08:13 Dose: 60 mg Documented By: Admin: 03/21/22 08:04 Dose: Not Given Documented By: Admin: 03/20/22 09:50 Dose: 60 mg Documented By: ALFREDA Shift Summary 03/22/22 02:32 Shift Summary by Rashid Hastings Pt has rested fairly well after midnight - PO Melatonin given @ 5. ABD pain up to 5 - new order for Rough And Ready 5 (1-2 tabs) PO Q4hr PRN. Rough And Ready 5 (1) PO given @ 1935 - no further pain med required. No N/V - PO Colace given w/ HS meds. No BM. Pt void QS per urinal. ABD lap sites x4 w/ kalpana & film dressings - scant sang drainage - Dsng's C,D,I.. He is up AMB (I) - gait stable w/o device. VS - WNL on R.A.. He is A&O x4, calm, pleasant, & cooperative. Initialized on 03/22/22 02:32 - END OF NOTE
--- NOTE | 2022-03-22 11:51 | General Surgery Progress Note ---
SUBJECTIVE Subjective Patient information: Note initiated : 03/22/22 at 11:48 am Service Date, if different from initiated Date: [] Patient: Buck Zamora 51 y/o M admitted on 03/19/22 for Left upper quadrant abdominal pain. Chief Complaint: [] Interval history: Patient is status post laparoscopic cholecystectomy on yesterday. He had an uneventful eventful night and has tolerated diet. He has essentially no abdominal pain. He is stable for discharge Constitutional Vitals: Vital Signs Temp Pulse Resp BP Pulse Ox O2 Del Method O2 Flow Rate 98.6 F 84 20 151/88 98 2 03/22/22 07:29 03/22/22 07:29 03/22/22 07:29 03/22/22 07:29 03/22/22 07:29 03/22/22 07:29 03/21/22 13:00 Period Temp Pulse Resp BP Sys/Joyner Pulse Ox O2 Del Method O2 Flow Rate Last 24 Hr 97.5 F-98.8 F 54-84 16-20 125-156/76-93 91-98 Nasal Cannula- Room Air 2 Intake and Output 03/21/22 03/22/22 03/22/22 21:59 05:59 13:59 Intake Total 440 200 Output Total 1999 525 Balance -1560 200 -525 Weight 235 lb Intake & Output: Intake & Output 03/21/22 03/22/22 03/22/22 21:59 05:59 13:59 Intake Total 440 200 Output Total 1999 525 Balance -1560 200 -525 Weight 235 lb Intake: Oral 440 200 Output: Void Amount 1999 525 Other: Meal Lunch Percent of Meal Consumed 100% Feeding Ability Independent Urine Appearance Clear Clear Urine Color Yellow Yellow Urine Odor Normal ENT ENT exam: Present mucous membranes moist and normal oropharynx Neck Neck exam: Present full ROM and normal inspection; Absent tenderness Respiratory Respiratory exam: Present normal respiratory exam and CTAB; Absent rales or wheezes Cardiovascular Cardiovascular exam: Present RRR, +S1 and +S2; Absent JVD GI/Abdominal GI/Abdominal exam: Present normal bowel sounds, soft and tenderness (Mild tenderness around port sites); Absent distended Extremities Exam Extremities exam: Present neurovascular intact Neurological Exam Neurological exam: Present oriented X3; Absent motor sensory deficit Psychiatric Psychiatric exam: Present normal affect and normal mood A/P Assessment and plan (1) Gallstone pancreatitis: Status: Acute (2) Umbilical hernia: Status: Acute Time Spent With Patient Time: Total time spent is greater than 50% in coordination of care (as documented) at patient's floor/unit and/or counseling patient:
--- NOTE | 2022-03-26 16:16 | Operative Note ---
DATE OF OPERATION: 03/21/2022 PREOPERATIVE DIAGNOSES: Cholelithiasis with cholecystitis and umbilical hernia. POSTOPERATIVE DIAGNOSES: Cholelithiasis with cholecystitis and umbilical hernia. PROCEDURE: Laparoscopic cholecystectomy. SURGEON: Garett Cohen M.D. DESCRIPTION OF PROCEDURE: Under general anesthesia, the patient's abdomen was prepped and draped in a sterile field. There was a supraumbilical hernia with incarcerated tissue. Incision was made above this tissue and the Veress needle was inserted. The abdomen was insufflated with 3 liters of CO2. A 12 mm port was placed. Laparoscope was placed. Under videoscopic guidance, a 12 mm port and two 5 mm ports were placed in the right subcostal region. The gallbladder was densely and tightly dilated. It was decompressed. It was then grasped and positioned. Cystic duct was dissected back to the gallbladder. Cystic artery was dissected onto the wall of the gallbladder. Cystic duct was transected using the Endo stapler. Cystic artery was clipped with four clips and divided. The gallbladder was then from the infrahepatic bed using electrocautery. It was placed in an Endopouch and retrieved. Irrigation was carried out. Bed was clean without any bleeding or bile leak. CO2 was allowed to escape from the abdomen and the ports were removed. Once this was done, the supraumbilical incision was extended closer to the umbilicus and the incarcerated fat through the umbilical hernia was circumferentially dissected. It had a very tight neck, which was enlarged about 4 or 5 mm. This was done in order to dissect the preperitoneal fat and push it back into the preperitoneal space. The hole was not big enough for any of our patches. It was elected to close it primarily. The defect was closed with interrupted #1 Prolene. Subcutaneous tissue was closed with 2-0 Vicryl. Skin incisions were closed with kalpana. The patient tolerated the procedure well. Dressings were placed. He was awakened, transferred to a bed, and taken to the postanesthetic care unit in satisfactory condition. LCS:matthew Job ID: [id number] Doc ID: [id number] Garett Cohen M.D.
== END 2022-03-22 12:55 | disposition home or self-care (01) | DRG 418 ==
LOC: ED 01:27 → MEDSUR 05:25
PROVIDERS: ADMIT Internal Medicine; ATTEND Internal Medicine